=== PATIENT | female | born 1940 | race Caucasian/White ===

== ENCOUNTER 2018-01-22 05:20 | Inpatient (IN) | payer MEDICARE, OTHER ==
[~2018-01-22] VITALS: Ht 167.6 cm; Wt 88.7 kg
[2018-01-22] MEDS ORDERED: LACTATED RINGERS 1,000 ML IV SCH (06:11)
[2018-01-22] MEDS ORDERED: CALC1TAB41 PO (06:22)
[2018-01-22] MEDS ORDERED: FURO20TA3 PO (06:22)
[2018-01-22] MEDS ORDERED: TRAM50TA2 PO (06:22)
[2018-01-22] MEDS ORDERED: METH2.5T PO (06:22)
[2018-01-22] MEDS ORDERED: AMIT10TA PO (06:22)
[2018-01-22] MEDS ORDERED: IRON1TAB62 PO (06:22)
[2018-01-22] MEDS ORDERED: GABA300C10 PO (06:22)
[2018-01-22] MEDS ORDERED: SPIR100T2 PO (06:22)
[2018-01-22] MEDS ORDERED: CYAN100028 PO (06:22)
[2018-01-22] MEDS ORDERED: METF500T27 PO (06:22)
[2018-01-22] MEDS ORDERED: POTA10TA31 PO (06:22)
[2018-01-22] MEDS ORDERED: LEVO125T5 PO (06:22)
[2018-01-22] MEDS ORDERED: FOLI-17 PO (06:22)
[2018-01-22] MEDS ORDERED: CHOL200024 PO (06:22)
[2018-01-22] MEDS ORDERED: WARF1TAB74 PO (06:22)
[2018-01-22] MEDS ORDERED: SIMV10TA3 PO (06:22)
[2018-01-22] MEDS ORDERED: DOXY100T PO (06:22)
[2018-01-22] MEDS ORDERED: ONDA4TAB7 PO (06:22)
[2018-01-22] MEDS ORDERED: ASCO10004 PO (06:22)
[2018-01-22] MEDS ORDERED: AMOX-291 PO (06:22)
[2018-01-22] MEDS ORDERED: TRANEXAMIC ACID 100 MG/ML, 10ML ONE (06:36)
[2018-01-22] MEDS ORDERED: KETOROLAC 60 MG/2 ML ONE (06:36)
[2018-01-22] MEDS ORDERED: ROPIvacaine/PF 0.2%, 20 ML ONE (06:37)
[2018-01-22] MEDS ORDERED: TOBRAMYCIN SULFATE 1.2 GM IMP ONE (06:37)
[2018-01-22] MEDS ORDERED: VANCOMYCIN 1,000 MG ONE (06:38)
[2018-01-22] MEDS ORDERED: EPINEPHRINE 1 MG/ML, 1ML ONE (06:38)
[2018-01-22] MEDS ORDERED: SODIUM CHLORIDE 0.9% 0 ML ONE (06:38)
[2018-01-22 07:08] VITALS: BP 128/73
[2018-01-22] MEDS ORDERED: FENTANYL PF 250 MCG/5ML ONE (07:08)
[2018-01-22] MEDS ORDERED: INFL100V IV (07:25)
[2018-01-22] MEDS ORDERED: OxyconTIN ER 10 MG TAB.ER PO ONE (07:30)
[2018-01-22] MEDS ORDERED: GABAPENTIN 300 MG CAPSULE PO ONE (07:30)
[2018-01-22] MEDS ORDERED: ACETAMINOPHEN 500 MG TABLET PO ONE (07:30)
[2018-01-22 07:31] LABS: INTERNATIONAL NORMALIZED RATIO 1.57 (0.93-1.1)
[2018-01-22] MEDS ORDERED: ONDANSETRON 2MG/ML, 2ML ONE (07:42)
[2018-01-22] MEDS ORDERED: PROPOFOL 10 MG/ML, 20ML ONE (07:42)
[2018-01-22] MEDS ORDERED: DEXAMETHASONE 4 MG/ML, 1ML ONE (07:42)
[2018-01-22] MEDS ORDERED: OXYcodone 5 MG/5 ML ORAL.SOL UDC PO PRN (08:30)
[2018-01-22] MEDS ORDERED: LABETALOL 5MG/ML, 20ML IV PRN (08:30)
[2018-01-22] MEDS ORDERED: hydrALAzine 20 MG/ML, 1ML IV PRN (08:30)
[2018-01-22] MEDS ORDERED: HALOPERIDOL 5 MG/ML IV PRN (08:30)
[2018-01-22] MEDS ORDERED: PROMETHAZINE 25 MG/ML, 1ML IV PRN (08:30)
[2018-01-22] MEDS ORDERED: LORazepam 2 MG/ML, 1ML IVPush PRN (08:30)
[2018-01-22] MEDS ORDERED: ALBUTEROL SULFATE 2.5 MG/3 ML NPPB PRN (08:30)
[2018-01-22] MEDS ORDERED: FENTANYL PF 100 MCG/2ML ONE (10:09)
[2018-01-22] MEDS: FENTANYL PF 100 MCG/2ML IV PRN ×2 (10:11→10:32)
[2018-01-22] MEDS ORDERED: DEXTROSE 4 GM TAB.CHEW PO PRN (10:30)
[2018-01-22] MEDS ORDERED: PROMETHAZINE 12.5 MG SUPP PR PRN (10:30)
[2018-01-22] MEDS ORDERED: HYDROmorphone 1 MG/ML, 1ML IV PRN (10:30)
[2018-01-22] MEDS: ACETAMINOPHEN 650 MG/20.3 ML UDC PO SCH ×2 (10:30→18:23)
[2018-01-22] MEDS ORDERED: MAGNESIUM HYDROXIDE 8%, 30ML UDC PO PRN (10:30)
[2018-01-22] MEDS ORDERED: DIAZEPAM 5 MG TABLET PO PRN (10:30)
[2018-01-22] MEDS ORDERED: DIPHENHYDRAMINE 50 MG CAPSULE PO PRN (10:30)
[2018-01-22] MEDS ORDERED: BISACODYL 10 MG SUPP PR PRN (10:30)
[2018-01-22] MEDS ORDERED: LORazepam 1MG TABLET PO PRN (10:30)
[2018-01-22] MEDS ORDERED: DEXTROSE 50%, 50ML SYRINGE IVPush PRN (10:30)
[2018-01-22] MEDS ORDERED: SENNA/DOCUSATE TABLET PO PRN (10:30)
[2018-01-22] MEDS ORDERED: ONDANSETRON 4 MG TABLET PO PRN (10:30)
[2018-01-22] MEDS ORDERED: ALUMINUM/MAG/SIMETHICONE 30 ML UDC PO PRN (10:30)
[2018-01-22] MEDS ORDERED: PROMETHAZINE 25 MG/ML, 1ML IM PRN (10:30)
[2018-01-22] MEDS ORDERED: ZOLPIDEM 5MG TABLET PO PRN (10:30)
[2018-01-22] MEDS ORDERED: GLUCAGON 1 MG IM PRN (10:30)
[2018-01-22] MEDS ORDERED: HYDROmorphone 2 MG/ML, 1ML ONE (10:36)
[2018-01-22] MEDS: HYDROmorphone 1 MG/ML, 1ML IV PRN ×3 (10:37→10:59)
[2018-01-22] MEDS ORDERED: OXYcodone 5 MG/5 ML ORAL.SOL UDC ONE (10:43)
[2018-01-22] MEDS: ONDANSETRON 2MG/ML, 2ML IV PRN (12:19)
[2018-01-22] MEDS: SODIUM CHLORIDE 0.9% 1,000 ML IV SCH ×2 (12:22→22:30)
[2018-01-22] MEDS: INSULIN REGULAR 100 UNITS/ML, 3ML VIAL SQ-INSULIN SCH ×3 (13:14→22:30)
[2018-01-22] MEDS: TAMSULOSIN 0.4 MG CAP.ER.24H PO SCH (13:14)
[2018-01-22 15:00] VITALS: BP 87/59
[2018-01-22] MEDS: CEFAZOLIN PMX 1GM/50ML 50 ML IVPB SCH ×2 (15:36→23:44)
[2018-01-22] MEDS: OXYcodone IR 5MG TABLET PO PRN (15:51)
[2018-01-22 19:20] VITALS: BP 85/50
[2018-01-22] MEDS: DOXYCYCLINE 100MG TABLET PO SCH (21:04)
[2018-01-22] MEDS: DOCUSATE 100 MG CAPSULE PO SCH (21:04)
[2018-01-22] MEDS: SIMVASTATIN 10 MG TABLET PO SCH (21:05)
[2018-01-22] MEDS: SODIUM CHLORIDE FLUSH 10ML SYR IVF SCH (21:09)
[2018-01-23 01:08] VITALS: BP 90/53
[2018-01-23] MEDS: ACETAMINOPHEN 650 MG/20.3 ML UDC PO SCH ×3 (02:45→20:37)
[2018-01-23] MEDS: SODIUM CHLORIDE 0.9% 1,000 ML IV SCH (02:49)
[2018-01-23 05:42] LABS: ALBUMIN 2.2 g/dL (3.4-5.0); ANION GAP 4 mmol/L (5-15); CALCIUM 7.5 mg/dL (8.5-10.1); CHLORIDE 104 mmol/L (98-107); CREATININE 1.48 mg/dL (0.55-1.02)
[2018-01-23] MEDS ORDERED: SODIUM CHLORIDE 0.9%, 500ML IVBOLUS ONE (06:30)
[2018-01-23] MEDS: LEVOTHYROXINE 125 MCG TABLET PO SCH (06:32)
[2018-01-23 06:45] VITALS: BP_SYST 88; BP_SYST 93; BP_DIAS 41; BP_DIAS 45
[2018-01-23] MEDS: INSULIN REGULAR 100 UNITS/ML, 3ML VIAL SQ-INSULIN SCH ×2 (07:00→11:00)
[2018-01-23] MEDS: SPIRONOLACTONE 100 MG TABLET PO SCH (09:00)
[2018-01-23] MEDS: FUROSEMIDE 20 MG TABLET PO SCH (09:00)
[2018-01-23] MEDS ORDERED: POTASSIUM CHLORIDE 10 MEQ TABLET.ER PO SCH (09:00)
[2018-01-23] MEDS ORDERED: SPIRONOLACTONE 25 MG TABLET ONE (09:04)
[2018-01-23] MEDS: CEFAZOLIN PMX 1GM/50ML 50 ML IVPB SCH ×3 (09:13→23:09)
[2018-01-23] MEDS: FOLIC ACID 1 MG TABLET PO SCH (09:14)
[2018-01-23] MEDS: DOCUSATE 100 MG CAPSULE PO SCH ×2 (09:14→20:38)
[2018-01-23] MEDS: DOXYCYCLINE 100MG TABLET PO SCH (09:15)
[2018-01-23] MEDS: GABAPENTIN 300 MG CAPSULE PO SCH (09:15)
[2018-01-23] MEDS: TAMSULOSIN 0.4 MG CAP.ER.24H PO SCH (11:01)
[2018-01-23] MEDS: SODIUM CHLORIDE FLUSH 10ML SYR IVF SCH ×2 (11:01→20:38)
[2018-01-23] MEDS: CYANOCOBALAMIN 1,000 MCG TABLET PO SCH (11:02)
[2018-01-23] MEDS: RIVAROXABAN 10 MG TABLET PO SCH (11:02)
[2018-01-23] MEDS: INSULIN LISPRO 100 UNITS/ML, PEN SQ-INSULIN SCH ×3 (12:00→20:36)
[2018-01-23 12:16] LABS: BASOPHILS # (AUTO) 0.01 x10^3/uL (0-0.1); BASOPHILS % (AUTO) 0 % (0-1); EOSINOPHILS # (AUTO) 0.06 x10^3/uL (0-0.4); EOSINOPHILS % (AUTO) 1 % (1-7); LYMPHOCYTES # (AUTO) 1.25 x10^3/uL (1-3.4); LYMPHOCYTES % (AUTO) 11 % (22-44); MD NO; MEAN CORPUSCULAR HEMOGLOBIN 31.3 pg (27.0-34.8); MEAN CORPUSCULAR HGB CONC 32.9 g/dL (32.4-35.8); MEAN CORPUSCULAR VOLUME 95.1 fL (80-100); MEAN PLATELET VOLUME 7.6 fL (7.4-10.4); MONOCYTES # (AUTO) 0.61 x10^3/uL (0.2-0.8); MONOCYTES % (AUTO) 6 % (2-9); NEUTROPHILS # (AUTO) 9.03 x10^3/uL (1.8-6.8); NEUTROPHILS % (AUTO) 82 % (42-75); PLATELET COUNT 257 x10^3/uL (130-400); RED BLOOD COUNT 2.41 x10^6/uL (3.82-5.3); RED CELL DISTRIBUTION WIDTH 16.2 % (9.6-15.2)
[2018-01-23 12:30] LABS: CHLORIDE 102 mmol/L (98-107)
[2018-01-23] MEDS ORDERED: SODIUM POLYSTYRENE SULFONATE ORAL SUSP PO ONE ×2 (12:30→13:00)
[2018-01-23 12:36] LABS: ANION GAP 6 mmol/L (5-15); CALCIUM 7.7 mg/dL (8.5-10.1); CREATININE 1.48 mg/dL (0.55-1.02)
[2018-01-23 12:46] LABS: HEMOGLOBIN A1C 5.7 % (4.2-6.3)
[2018-01-23 13:00] LABS: INTERNATIONAL NORMALIZED RATIO 2.07 (0.93-1.1)
[2018-01-23 13:14] LABS: THYROID STIMULATING HORMONE 0.324 mIU/L (0.358-3.740)
[2018-01-23] MEDS: OXYcodone IR 5MG TABLET PO PRN ×3 (13:26→21:54)
[2018-01-23 13:52] VITALS: BP 92/45
[2018-01-23] MEDS ORDERED: LIDOCAINE-MPF 1%, 2ML ONE (13:59)
[2018-01-23] MEDS: KETOROLAC 30 MG/1 ML IV SCH ×2 (15:06→23:09)
[2018-01-23] MEDS: DAPTOMYCIN 600 MG in SODIUM CHLORIDE 0.9% 100 ML IV SCH (16:23)
[2018-01-23] MEDS ORDERED: WARF2TAB99 PO (17:44)
[2018-01-23 19:42] VITALS: BP 100/52
[2018-01-23] MEDS: SIMVASTATIN 10 MG TABLET PO SCH (20:38)
[2018-01-24 01:45] VITALS: BP 123/56
[2018-01-24] MEDS: OXYcodone IR 5MG TABLET PO PRN ×3 (02:37→11:01)
[2018-01-24] MEDS: LEVOTHYROXINE 125 MCG TABLET PO SCH (04:50)
[2018-01-24] MEDS: ACETAMINOPHEN 650 MG/20.3 ML UDC PO SCH ×3 (04:50→20:17)
[2018-01-24 05:47] LABS: INTERNATIONAL NORMALIZED RATIO 1.77 (0.93-1.1)
[2018-01-24] MEDS: KETOROLAC 30 MG/1 ML IV SCH (06:26)
[2018-01-24] MEDS: CEFAZOLIN PMX 1GM/50ML 50 ML IVPB SCH ×3 (06:28→23:12)
[2018-01-24] MEDS: INSULIN LISPRO 100 UNITS/ML, PEN SQ-INSULIN SCH ×4 (06:35→20:15)
[2018-01-24 07:05] VITALS: BP 91/42
[2018-01-24 08:28] LABS: MEAN CORPUSCULAR HEMOGLOBIN 31.5 pg (27.0-34.8); MEAN CORPUSCULAR HGB CONC 33.1 g/dL (32.4-35.8); MEAN CORPUSCULAR VOLUME 95.1 fL (80-100); MEAN PLATELET VOLUME 7.4 fL (7.4-10.4); PLATELET COUNT 249 x10^3/uL (130-400); RED BLOOD COUNT 2.38 x10^6/uL (3.82-5.3)
[2018-01-24 08:32] LABS: ALBUMIN 2.2 g/dL (3.4-5.0); ANION GAP 6 mmol/L (5-15); CALCIUM 7.6 mg/dL (8.5-10.1); CHLORIDE 106 mmol/L (98-107)
[2018-01-24 08:36] LABS: % IRON SATURATION 14 % (20-55); ALANINE AMINOTRANSFERASE 8 U/L (12-78); ALKALINE PHOSPHATASE 76 U/L (45-117); BILIRUBIN,TOTAL 0.3 mg/dL (0.2-1.0); CREATININE 1.87 mg/dL (0.55-1.02); IRON LEVEL 23 mcg/dL (50-170); TOTAL IRON BINDING CAPACITY 167 mcg/dL (250-450); TOTAL PROTEIN 5.1 g/dL (6.4-8.2)
[2018-01-24] MEDS: FUROSEMIDE 20 MG TABLET PO SCH (09:00)
[2018-01-24] MEDS: SPIRONOLACTONE 100 MG TABLET PO SCH (09:00)
[2018-01-24 09:02] LABS: BASOPHILS # (AUTO) 0.03 x10^3/uL (0-0.1); BASOPHILS % (AUTO) 0 % (0-1); EOSINOPHILS # (AUTO) 0.14 x10^3/uL (0-0.4); EOSINOPHILS % (AUTO) 1 % (1-7); LYMPHOCYTES # (AUTO) 0.62 x10^3/uL (1-3.4); LYMPHOCYTES % (AUTO) 4 % (22-44); MD SCAN; MONOCYTES # (AUTO) 0.69 x10^3/uL (0.2-0.8); MONOCYTES % (AUTO) 5 % (2-9); NEUTROPHILS # (AUTO) 13.36 x10^3/uL (1.8-6.8); NEUTROPHILS % (AUTO) 90 % (42-75)
[2018-01-24] MEDS: SODIUM CHLORIDE FLUSH 10ML SYR IVF SCH ×2 (09:33→20:17)
[2018-01-24] MEDS: TAMSULOSIN 0.4 MG CAP.ER.24H PO SCH (09:35)
[2018-01-24] MEDS: DOCUSATE 100 MG CAPSULE PO SCH ×2 (09:35→20:17)
[2018-01-24] MEDS: FOLIC ACID 1 MG TABLET PO SCH (09:35)
[2018-01-24] MEDS: CYANOCOBALAMIN 1,000 MCG TABLET PO SCH (09:36)
[2018-01-24] MEDS: RIVAROXABAN 10 MG TABLET PO SCH (09:36)
[2018-01-24] MEDS: GABAPENTIN 300 MG CAPSULE PO SCH (09:36)
[2018-01-24] MEDS: DAPTOMYCIN 600 MG in SODIUM CHLORIDE 0.9% 100 ML IV SCH (12:49)
[2018-01-24 15:16] VITALS: BP 103/43
[2018-01-24] MEDS: ONDANSETRON 2MG/ML, 2ML IV PRN (17:06)
[2018-01-24 19:23] VITALS: BP 129/62
[2018-01-24] MEDS: SIMVASTATIN 10 MG TABLET PO SCH (20:17)
[2018-01-25 01:03] VITALS: BP 94/45
[2018-01-25] MEDS: LEVOTHYROXINE 125 MCG TABLET PO SCH (05:06)
[2018-01-25] MEDS: ACETAMINOPHEN 650 MG/20.3 ML UDC PO SCH ×2 (05:06→15:14)
[2018-01-25 05:29] LABS: INTERNATIONAL NORMALIZED RATIO 2.14 (0.93-1.1); PROTHROMBIN TIME 21.7 Seconds (9.6-11.5)
[2018-01-25 05:31] LABS: MEAN CORPUSCULAR HEMOGLOBIN 31.6 pg (27.0-34.8); MEAN CORPUSCULAR HGB CONC 33.4 g/dL (32.4-35.8); MEAN CORPUSCULAR VOLUME 94.7 fL (80-100); MEAN PLATELET VOLUME 7.4 fL (7.4-10.4); PLATELET COUNT 235 x10^3/uL (130-400); RED BLOOD COUNT 2.15 x10^6/uL (3.82-5.3); RED CELL DISTRIBUTION WIDTH 17.7 % (9.6-15.2)
[2018-01-25 05:44] LABS: ALBUMIN 1.8 g/dL (3.4-5.0); ANION GAP 6 mmol/L (5-15); CALCIUM 7.2 mg/dL (8.5-10.1); CHLORIDE 107 mmol/L (98-107)
[2018-01-25 05:48] LABS: ALKALINE PHOSPHATASE 62 U/L (45-117); BILIRUBIN,TOTAL 0.4 mg/dL (0.2-1.0); CREATININE 1.54 mg/dL (0.55-1.02); TOTAL PROTEIN 4.6 g/dL (6.4-8.2)
[2018-01-25 05:49] LABS: ALANINE AMINOTRANSFERASE < 6 U/L (12-78)
[2018-01-25 05:57] LABS: MD YES
[2018-01-25 05:59] LABS: BAND#(MANUAL) 2.47 x10^3/uL; BANDS%(MANUAL) 13 % (0-7); LYMPH#(MANUAL) 1.33 x10^3/uL (1-3.4); LYMPHS% (MANUAL) 7 % (22-44); MONOS#(MANUAL) 0.76 x10^3/uL (0.3-2.7); MONOS% (MANUAL) 4 % (2-9); SEG#(MANUAL) 14.44 x10^3/uL (1.8-6.8); SEGS% (MANUAL) 76 % (42-75)
[2018-01-25 06:00] LABS: <PLATELET ESTIMATE> ADEQUATE; ANISOCYTOSIS 1+; POLYCHROMASIA 1+
[2018-01-25 06:02] LABS: BASOPHILLIC STIPPLING 1+
[2018-01-25 06:03] LABS: <PLT MORPHOLOGY> NORMAL PLT MORPH
[2018-01-25 07:31] VITALS: BP 86/38
[2018-01-25] MEDS: CEFAZOLIN PMX 1GM/50ML 50 ML IVPB SCH ×3 (07:51→23:06)
[2018-01-25 07:56] VITALS: BP 103/43
[2018-01-25] MEDS: INSULIN LISPRO 100 UNITS/ML, PEN SQ-INSULIN SCH ×4 (08:12→21:00)
[2018-01-25] MEDS: CYANOCOBALAMIN 1,000 MCG TABLET PO SCH (09:00)
[2018-01-25] MEDS: SODIUM CHLORIDE FLUSH 10ML SYR IVF SCH ×2 (09:55→21:12)
[2018-01-25] MEDS: GABAPENTIN 300 MG CAPSULE PO SCH (09:56)
[2018-01-25] MEDS: DOCUSATE 100 MG CAPSULE PO SCH ×2 (09:56→21:12)
[2018-01-25] MEDS: FOLIC ACID 1 MG TABLET PO SCH (09:56)
[2018-01-25] MEDS: RIVAROXABAN 10 MG TABLET PO SCH (09:56)
[2018-01-25] MEDS: TAMSULOSIN 0.4 MG CAP.ER.24H PO SCH (09:56)
[2018-01-25] MEDS ORDERED: SPIRONOLACTONE 25 MG TABLET ONE (10:02)
[2018-01-25] MEDS ORDERED: FUROSEMIDE 20 MG TABLET ONE (10:02)
[2018-01-25] MEDS: OMEPRAZOLE 20 MG CAPSULE.DR PO SCH ×2 (10:10→21:12)
[2018-01-25] MEDS: OXYcodone IR 5MG TABLET PO PRN ×2 (10:11→18:06)
[2018-01-25] MEDS: SPIRONOLACTONE 100 MG TABLET PO SCH (10:13)
[2018-01-25] MEDS: FUROSEMIDE 20 MG TABLET PO SCH (10:14)
[2018-01-25 10:17] VITALS: BP 110/47
[2018-01-25] MEDS: DAPTOMYCIN 600 MG in SODIUM CHLORIDE 0.9% 100 ML IV SCH (12:56)
[2018-01-25 14:59] VITALS: BP 85/41
[2018-01-25] MEDS: [UNRECOGNIZED DRUG - REMARK] MC SCH (18:00)
[2018-01-25 18:17] LABS: MEAN CORPUSCULAR HEMOGLOBIN 31.7 pg (27.0-34.8); MEAN CORPUSCULAR VOLUME 95.9 fL (80-100); MEAN PLATELET VOLUME 7.4 fL (7.4-10.4); PLATELET COUNT 288 x10^3/uL (130-400); RED BLOOD COUNT 2.09 x10^6/uL (3.82-5.3); RED CELL DISTRIBUTION WIDTH 17.9 % (9.6-15.2)
[2018-01-25 18:22] LABS: HEMOGRAM NOTE RECHECKED
[2018-01-25 18:27] LABS: MD YES
[2018-01-25] MEDS: FERROUS SULFATE 325 MG TABLET PO SCH (18:29)
[2018-01-25 18:31] LABS: ANISOCYTOSIS 1+; BAND#(MANUAL) 1.36 x10^3/uL; BANDS%(MANUAL) 6 % (0-7); BASOS#(MANUAL) 0.23 x10^3/uL (0-0.1); BASOS% (MANUAL) 1 % (0-1); EOS#(MANUAL) 0.45 x10^3/uL (0.0-0.4); EOS% (MANUAL) 2 % (1-7); LYMPH#(MANUAL) 1.58 x10^3/uL (1-3.4); LYMPHS% (MANUAL) 7 % (22-44); MONOS#(MANUAL) 1.58 x10^3/uL (0.3-2.7); MONOS% (MANUAL) 7 % (2-9); SEGS% (MANUAL) 77 % (42-75)
[2018-01-25 18:32] LABS: POLYCHROMASIA 1+
[2018-01-25 18:34] LABS: <PLATELET ESTIMATE> ADEQUATE; <PLT MORPHOLOGY> NORMAL PLT MORPH
[2018-01-25 20:08] VITALS: BP 90/43
[2018-01-25] MEDS: SIMVASTATIN 10 MG TABLET PO SCH (21:12)
[2018-01-25] MEDS: ACETAMINOPHEN 500 MG TABLET PO SCH (23:06)
[2018-01-26] MEDS: [UNRECOGNIZED DRUG - REMARK] MC SCH ×2 (00:32→10:00)
[2018-01-26 01:11] VITALS: BP 98/43
[2018-01-26] MEDS: OXYcodone IR 5MG TABLET PO PRN ×2 (05:31→11:41)
[2018-01-26] MEDS: LEVOTHYROXINE 125 MCG TABLET PO SCH (05:31)
[2018-01-26 06:19] LABS: ANION GAP 7 mmol/L (5-15); CALCIUM 8.2 mg/dL (8.5-10.1); CHLORIDE 108 mmol/L (98-107); CREATININE 1.94 mg/dL (0.55-1.02); MEAN CORPUSCULAR HEMOGLOBIN 31.5 pg (27.0-34.8); MEAN CORPUSCULAR HGB CONC 32.4 g/dL (32.4-35.8); MEAN CORPUSCULAR VOLUME 97.1 fL (80-100); MEAN PLATELET VOLUME 7.6 fL (7.4-10.4); PLATELET COUNT 346 x10^3/uL (130-400); RED BLOOD COUNT 2.27 x10^6/uL (3.82-5.3); RED CELL DISTRIBUTION WIDTH 18.2 % (9.6-15.2)
[2018-01-26] MEDS: INSULIN LISPRO 100 UNITS/ML, PEN SQ-INSULIN SCH ×4 (06:28→21:00)
[2018-01-26 06:31] LABS: INTERNATIONAL NORMALIZED RATIO 1.56 (0.93-1.1); PROTHROMBIN TIME 15.9 Seconds (9.6-11.5)
[2018-01-26 06:44] LABS: MD YES
[2018-01-26 06:47] LABS: BAND#(MANUAL) 0.27 x10^3/uL; BANDS%(MANUAL) 1 % (0-7); BASOS#(MANUAL) 0.27 x10^3/uL (0-0.1); BASOS% (MANUAL) 1 % (0-1); EOS#(MANUAL) 0.27 x10^3/uL (0.0-0.4); EOS% (MANUAL) 1 % (1-7); LYMPH#(MANUAL) 3.45 x10^3/uL (1-3.4); LYMPHS% (MANUAL) 13 % (22-44); MONOS#(MANUAL) 1.59 x10^3/uL (0.3-2.7); MONOS% (MANUAL) 6 % (2-9); SEG#(MANUAL) 20.67 x10^3/uL (1.8-6.8); SEGS% (MANUAL) 78 % (42-75)
[2018-01-26 06:48] LABS: <PLATELET ESTIMATE> ADEQUATE; <PLT MORPHOLOGY> NORMAL PLT MORPH; ANISOCYTOSIS 1+; POLYCHROMASIA 1+
[2018-01-26] MEDS ORDERED: SPIRONOLACTONE 25 MG TABLET ONE (07:38)
[2018-01-26] MEDS: CEFAZOLIN PMX 1GM/50ML 50 ML IVPB SCH ×2 (07:48→16:23)
[2018-01-26] MEDS: FERROUS SULFATE 325 MG TABLET PO SCH ×3 (07:49→16:34)
[2018-01-26] MEDS: ACETAMINOPHEN 500 MG TABLET PO SCH ×3 (07:49→23:41)
[2018-01-26] MEDS: SODIUM CHLORIDE FLUSH 10ML SYR IVF SCH ×2 (07:50→21:00)
[2018-01-26] MEDS: SPIRONOLACTONE 100 MG TABLET PO SCH (07:51)
[2018-01-26] MEDS: DOCUSATE 100 MG CAPSULE PO SCH ×2 (07:52→21:05)
[2018-01-26] MEDS: TAMSULOSIN 0.4 MG CAP.ER.24H PO SCH (07:53)
[2018-01-26] MEDS: FOLIC ACID 1 MG TABLET PO SCH (07:53)
[2018-01-26] MEDS: FUROSEMIDE 20 MG TABLET PO SCH (07:54)
[2018-01-26] MEDS: OMEPRAZOLE 20 MG CAPSULE.DR PO SCH ×2 (07:55→21:05)
[2018-01-26] MEDS: GABAPENTIN 300 MG CAPSULE PO SCH (07:55)
[2018-01-26] MEDS: CYANOCOBALAMIN 1,000 MCG TABLET PO SCH (07:56)
[2018-01-26] MEDS: RIVAROXABAN 10 MG TABLET PO SCH (07:57)
[2018-01-26 08:00] VITALS: BP 101/37
[2018-01-26] MEDS: DAPTOMYCIN 600 MG in SODIUM CHLORIDE 0.9% 100 ML IV SCH (12:25)
[2018-01-26 14:30] VITALS: BP 99/48
[2018-01-26] MEDS: SIMVASTATIN 10 MG TABLET PO SCH (21:05)
[2018-01-26 21:10] VITALS: BP 118/84
[2018-01-27] MEDS: CEFAZOLIN PMX 1GM/50ML 50 ML IVPB SCH ×3 (00:23→16:30)
[2018-01-27 00:39] VITALS: BP 119/75
[2018-01-27 02:11] VITALS: BP 107/55
[2018-01-27] MEDS: OXYcodone IR 5MG TABLET PO PRN (04:22)
[2018-01-27 05:08] LABS: MEAN CORPUSCULAR HEMOGLOBIN 31.3 pg (27.0-34.8); MEAN CORPUSCULAR HGB CONC 32.6 g/dL (32.4-35.8); MEAN CORPUSCULAR VOLUME 95.9 fL (80-100); MEAN PLATELET VOLUME 7.1 fL (7.4-10.4); PLATELET COUNT 403 x10^3/uL (130-400); RED BLOOD COUNT 2.17 x10^6/uL (3.82-5.3); RED CELL DISTRIBUTION WIDTH 18.7 % (9.6-15.2)
[2018-01-27 05:33] LABS: INTERNATIONAL NORMALIZED RATIO 1.34 (0.93-1.1); PROTHROMBIN TIME 13.7 Seconds (9.6-11.5)
[2018-01-27 05:59] LABS: MD YES
[2018-01-27 06:00] LABS: EOS#(MANUAL) 0.16 x10^3/uL (0.0-0.4); EOS% (MANUAL) 1 % (1-7); LYMPH#(MANUAL) 2.74 x10^3/uL (1-3.4); LYMPHS% (MANUAL) 17 % (22-44); MONOS#(MANUAL) 1.29 x10^3/uL (0.3-2.7); MONOS% (MANUAL) 8 % (2-9); NRBC % (MANUAL) 1 % (0-1); SEG#(MANUAL) 11.91 x10^3/uL (1.8-6.8); SEGS% (MANUAL) 74 % (42-75)
[2018-01-27 06:01] LABS: ANISOCYTOSIS 1+; POLYCHROMASIA 1+
[2018-01-27 06:02] LABS: <PLATELET ESTIMATE> ADEQUATE; <PLT MORPHOLOGY> NORMAL PLT MORPH
[2018-01-27] MEDS: INSULIN LISPRO 100 UNITS/ML, PEN SQ-INSULIN SCH ×4 (06:07→22:24)
[2018-01-27] MEDS: LEVOTHYROXINE 125 MCG TABLET PO SCH (06:07)
[2018-01-27] MEDS: ACETAMINOPHEN 500 MG TABLET PO SCH ×3 (07:57→23:14)
[2018-01-27] MEDS: FERROUS SULFATE 325 MG TABLET PO SCH ×3 (08:00→16:49)
[2018-01-27 08:25] LABS: ANION GAP 5 mmol/L (5-15); CALCIUM 8.2 mg/dL (8.5-10.1); CHLORIDE 111 mmol/L (98-107); CREATININE 1.62 mg/dL (0.55-1.02)
[2018-01-27] MEDS: SODIUM CHLORIDE FLUSH 10ML SYR IVF SCH ×2 (08:25→22:16)
[2018-01-27] MEDS: RIVAROXABAN 10 MG TABLET PO SCH (08:25)
[2018-01-27] MEDS: GABAPENTIN 300 MG CAPSULE PO SCH (08:26)
[2018-01-27] MEDS: OMEPRAZOLE 20 MG CAPSULE.DR PO SCH ×2 (08:26→22:16)
[2018-01-27] MEDS: TAMSULOSIN 0.4 MG CAP.ER.24H PO SCH (08:26)
[2018-01-27] MEDS: FOLIC ACID 1 MG TABLET PO SCH (08:27)
[2018-01-27] MEDS: DOCUSATE 100 MG CAPSULE PO SCH ×2 (08:27→22:16)
[2018-01-27] MEDS: FUROSEMIDE 20 MG TABLET PO SCH (08:40)
[2018-01-27] MEDS: CYANOCOBALAMIN 1,000 MCG TABLET PO SCH (09:00)
[2018-01-27] MEDS ORDERED: SODIUM POLYSTYRENE SULFONATE ORAL SUSP PR ONE (12:30)
[2018-01-27 13:15] LABS: ANION GAP 4 mmol/L (5-15); CALCIUM 8.2 mg/dL (8.5-10.1); CHLORIDE 108 mmol/L (98-107)
[2018-01-27] MEDS: DAPTOMYCIN 600 MG in SODIUM CHLORIDE 0.9% 100 ML IV SCH (13:17)
[2018-01-27 14:47] VITALS: BP 112/51
[2018-01-27 19:12] VITALS: BP 112/49
[2018-01-27] MEDS: SIMVASTATIN 10 MG TABLET PO SCH (22:16)
[2018-01-28] MEDS: CEFAZOLIN PMX 1GM/50ML 50 ML IVPB SCH ×3 (00:58→16:32)
[2018-01-28 01:21] VITALS: BP 119/52
[2018-01-28 05:16] LABS: INTERNATIONAL NORMALIZED RATIO 1.24 (0.93-1.1); PROTHROMBIN TIME 12.7 Seconds (9.6-11.5)
[2018-01-28 06:00] LABS: MEAN CORPUSCULAR HEMOGLOBIN 31.7 pg (27.0-34.8); MEAN CORPUSCULAR HGB CONC 33.1 g/dL (32.4-35.8); MEAN CORPUSCULAR VOLUME 95.6 fL (80-100); MEAN PLATELET VOLUME 6.6 fL (7.4-10.4); PLATELET COUNT 384 x10^3/uL (130-400); RED BLOOD COUNT 1.99 x10^6/uL (3.82-5.3); RED CELL DISTRIBUTION WIDTH 17.8 % (9.6-15.2)
[2018-01-28 06:34] LABS: BASOPHILS # (AUTO) 0.02 x10^3/uL (0-0.1); BASOPHILS % (AUTO) 0 % (0-1); EOSINOPHILS # (AUTO) 0.21 x10^3/uL (0-0.4); EOSINOPHILS % (AUTO) 2 % (1-7); LYMPHOCYTES # (AUTO) 1.76 x10^3/uL (1-3.4); LYMPHOCYTES % (AUTO) 18 % (22-44); MD SCAN; MONOCYTES % (AUTO) 7 % (2-9); NEUTROPHILS # (AUTO) 7.06 x10^3/uL (1.8-6.8); NEUTROPHILS % (AUTO) 72 % (42-75)
[2018-01-28] MEDS: LEVOTHYROXINE 125 MCG TABLET PO SCH (06:43)
[2018-01-28] MEDS: ACETAMINOPHEN 500 MG TABLET PO SCH ×3 (06:43→22:55)
[2018-01-28] MEDS: INSULIN LISPRO 100 UNITS/ML, PEN SQ-INSULIN SCH ×4 (06:43→22:39)
[2018-01-28 07:14] VITALS: BP 109/54
[2018-01-28] MEDS: FERROUS SULFATE 325 MG TABLET PO SCH ×3 (08:26→17:31)
[2018-01-28] MEDS: OMEPRAZOLE 20 MG CAPSULE.DR PO SCH ×2 (08:26→22:35)
[2018-01-28] MEDS: GABAPENTIN 300 MG CAPSULE PO SCH (08:26)
[2018-01-28] MEDS: TAMSULOSIN 0.4 MG CAP.ER.24H PO SCH (08:26)
[2018-01-28] MEDS: DOCUSATE 100 MG CAPSULE PO SCH ×2 (08:26→22:35)
[2018-01-28] MEDS: FUROSEMIDE 20 MG TABLET PO SCH (08:26)
[2018-01-28] MEDS: RIVAROXABAN 10 MG TABLET PO SCH (08:27)
[2018-01-28] MEDS: FOLIC ACID 1 MG TABLET PO SCH (08:27)
[2018-01-28] MEDS: SODIUM CHLORIDE FLUSH 10ML SYR IVF SCH ×2 (09:00→21:00)
[2018-01-28] MEDS: CYANOCOBALAMIN 1,000 MCG TABLET PO SCH (09:00)
[2018-01-28 13:01] VITALS: BP 138/74
[2018-01-28] MEDS: DAPTOMYCIN 600 MG in SODIUM CHLORIDE 0.9% 100 ML IV SCH (13:52)
[2018-01-28 17:40] LABS: ANION GAP 6 mmol/L (5-15); CALCIUM 8.3 mg/dL (8.5-10.1); CHLORIDE 107 mmol/L (98-107); CREATININE 1.53 mg/dL (0.55-1.02)
[2018-01-28] MEDS ORDERED: SODIUM POLYSTYRENE SULFONATE ORAL SUSP PO ONE ×2 (18:30→20:00)
[2018-01-28 19:16] VITALS: BP 126/64
[2018-01-28] MEDS: SIMVASTATIN 10 MG TABLET PO SCH (22:35)
[2018-01-29] MEDS: CEFAZOLIN PMX 1GM/50ML 50 ML IVPB SCH ×3 (00:44→18:14)
[2018-01-29 01:06] VITALS: BP 129/71
[2018-01-29] MEDS: OXYcodone IR 5MG TABLET PO PRN ×2 (01:23→13:17)
[2018-01-29] MEDS: LEVOTHYROXINE 125 MCG TABLET PO SCH (05:53)
[2018-01-29 05:55] LABS: BASOPHILS % (AUTO) 2 % (0-1); EOSINOPHILS # (AUTO) 0.27 x10^3/uL (0-0.4); EOSINOPHILS % (AUTO) 3 % (1-7); LYMPHOCYTES # (AUTO) 1.79 x10^3/uL (1-3.4); LYMPHOCYTES % (AUTO) 20 % (22-44); MD NO; MEAN CORPUSCULAR HEMOGLOBIN 31.4 pg (27.0-34.8); MEAN CORPUSCULAR HGB CONC 32.7 g/dL (32.4-35.8); MEAN PLATELET VOLUME 6.6 fL (7.4-10.4); MONOCYTES # (AUTO) 0.93 x10^3/uL (0.2-0.8); MONOCYTES % (AUTO) 10 % (2-9); NEUTROPHILS # (AUTO) 5.96 x10^3/uL (1.8-6.8); NEUTROPHILS % (AUTO) 65 % (42-75); PLATELET COUNT 392 x10^3/uL (130-400); RED BLOOD COUNT 1.89 x10^6/uL (3.82-5.3)
[2018-01-29 06:07] LABS: ALBUMIN 1.8 g/dL (3.4-5.0); ANION GAP 5 mmol/L (5-15); CALCIUM 7.7 mg/dL (8.5-10.1); CHLORIDE 109 mmol/L (98-107)
[2018-01-29 06:12] LABS: ALKALINE PHOSPHATASE 72 U/L (45-117); BILIRUBIN,TOTAL 0.4 mg/dL (0.2-1.0); CREATININE 1.36 mg/dL (0.55-1.02)
[2018-01-29 06:50] LABS: ALANINE AMINOTRANSFERASE < 6 U/L (12-78)
[2018-01-29] MEDS: INSULIN LISPRO 100 UNITS/ML, PEN SQ-INSULIN SCH ×4 (07:00→21:50)
[2018-01-29] MEDS: ACETAMINOPHEN 500 MG TABLET PO SCH ×2 (07:30→15:40)
[2018-01-29] MEDS ORDERED: OMNIPAQUE 350 MG/ML, 100ML BOTTLE ONE (08:15)
[2018-01-29 08:22] VITALS: BP 128/69
[2018-01-29] MEDS ORDERED: IRON SUCROSE COMPLEX 100MG/5ML IV ONE (09:00)
[2018-01-29] MEDS: DOCUSATE 100 MG CAPSULE PO SCH ×2 (09:00→21:41)
[2018-01-29] MEDS: RIVAROXABAN 10 MG TABLET PO SCH (09:00)
[2018-01-29] MEDS: SODIUM CHLORIDE FLUSH 10ML SYR IVF SCH ×2 (10:36→21:42)
[2018-01-29] MEDS: FOLIC ACID 1 MG TABLET PO SCH (10:37)
[2018-01-29] MEDS: OMEPRAZOLE 20 MG CAPSULE.DR PO SCH ×2 (10:37→21:43)
[2018-01-29] MEDS: CYANOCOBALAMIN 1,000 MCG TABLET PO SCH (10:37)
[2018-01-29] MEDS: FUROSEMIDE 20 MG TABLET PO SCH (10:38)
[2018-01-29] MEDS: GABAPENTIN 300 MG CAPSULE PO SCH (10:38)
[2018-01-29] MEDS: DAPTOMYCIN 600 MG in SODIUM CHLORIDE 0.9% 100 ML IV SCH (13:04)
[2018-01-29] MEDS ORDERED: OMEP-110 PO (13:10)
[2018-01-29] MEDS ORDERED: FOLI-17 PO (13:10)
[2018-01-29] MEDS ORDERED: RIVA10TA PO (13:10)
[2018-01-29] MEDS ORDERED: CYAN10005 PO (13:10)
[2018-01-29] MEDS ORDERED: IRON200V IV (13:44)
[2018-01-29] MEDS ORDERED: OXYC5CAP2 PO (13:45)
[2018-01-29 14:05] VITALS: BP 114/69
[2018-01-29 19:10] VITALS: BP 103/61
[2018-01-29] MEDS: SIMVASTATIN 10 MG TABLET PO SCH (21:43)
[2018-01-30] MEDS: ACETAMINOPHEN 500 MG TABLET PO SCH ×2 (00:37→08:51)
[2018-01-30] MEDS: CEFAZOLIN PMX 1GM/50ML 50 ML IVPB SCH ×2 (02:17→08:53)
[2018-01-30 05:12] VITALS: BP 105/56
[2018-01-30] MEDS: LEVOTHYROXINE 125 MCG TABLET PO SCH (05:54)
[2018-01-30 06:19] LABS: MEAN CORPUSCULAR HGB CONC 33.2 g/dL (32.4-35.8); MEAN CORPUSCULAR VOLUME 96.4 fL (80-100); MEAN PLATELET VOLUME 6.3 fL (7.4-10.4); PLATELET COUNT 419 x10^3/uL (130-400); RED BLOOD COUNT 2.03 x10^6/uL (3.82-5.3); RED CELL DISTRIBUTION WIDTH 18.3 % (9.6-15.2)
[2018-01-30 06:29] LABS: ANION GAP 7 mmol/L (5-15); CALCIUM 8.2 mg/dL (8.5-10.1); CHLORIDE 106 mmol/L (98-107); CREATININE 1.21 mg/dL (0.55-1.02)
[2018-01-30 06:53] VITALS: BP 111/66
[2018-01-30 06:55] LABS: BASOPHILS # (AUTO) 0.03 x10^3/uL (0-0.1); BASOPHILS % (AUTO) 0 % (0-1); EOSINOPHILS # (AUTO) 0.25 x10^3/uL (0-0.4); EOSINOPHILS % (AUTO) 3 % (1-7); LYMPHOCYTES # (AUTO) 2.18 x10^3/uL (1-3.4); LYMPHOCYTES % (AUTO) 22 % (22-44); MD SCAN; MONOCYTES # (AUTO) 1.08 x10^3/uL (0.2-0.8); MONOCYTES % (AUTO) 11 % (2-9); NEUTROPHILS # (AUTO) 6.54 x10^3/uL (1.8-6.8); NEUTROPHILS % (AUTO) 65 % (42-75)
[2018-01-30] MEDS: INSULIN LISPRO 100 UNITS/ML, PEN SQ-INSULIN SCH (07:00)
[2018-01-30] MEDS: GABAPENTIN 300 MG CAPSULE PO SCH (08:50)
[2018-01-30] MEDS: OMEPRAZOLE 20 MG CAPSULE.DR PO SCH (08:50)
[2018-01-30] MEDS: FUROSEMIDE 20 MG TABLET PO SCH (08:51)
[2018-01-30] MEDS: FOLIC ACID 1 MG TABLET PO SCH (08:51)
[2018-01-30] MEDS: CYANOCOBALAMIN 1,000 MCG TABLET PO SCH (08:51)
[2018-01-30] MEDS: SODIUM CHLORIDE FLUSH 10ML SYR IVF SCH (08:51)
== END 2018-01-30 09:09 | DRG 463 ==
LOC: ORIP 05:20 → 4NOR 11:16
PROVIDERS: ADMIT Orthopaedic Surgery Adult Reconstructive Orthopaedic Surgery; ATTEND Internal Medicine
PROC: 0SHD08Z Insertion of Spacer into Left Knee Joint, Open Approach (ICD-10-PCS; 2018-01-22)
PROC: 0SPD0JZ Removal of Synthetic Substitute from Left Knee Joint, Open Approach (ICD-10-PCS; principal; 2018-01-22 07:30)
PROC: 02HV33Z Insertion of Infusion Device into Superior Vena Cava, Percutaneous Approach (ICD-10-PCS; 2018-01-23)
PROC: B5181ZA Fluoroscopy of Superior Vena Cava using Low Osmolar Contrast, Guidance (ICD-10-PCS; 2018-01-23)
PROC: B548ZZA Ultrasonography of Superior Vena Cava, Guidance (ICD-10-PCS; 2018-01-23)
DX: T84.54XA Infection and inflammatory reaction due to internal left knee prosthesis, initial encounter (principal); E43 Unspecified severe protein-calorie malnutrition; M00.9 Pyogenic arthritis, unspecified; N17.9 Acute kidney failure, unspecified; D68.69 Other thrombophilia; Y83.1 Surgical operation with implant of artificial internal device as the cause of abnormal reaction of the patient, or of later complication, without mention of misadventure at the time of the procedure; Z96.652 Presence of left artificial knee joint; E03.9 Hypothyroidism, unspecified; E11.9 Type 2 diabetes mellitus without complications; I50.9 Heart failure, unspecified; E87.5 Hyperkalemia; D50.9 Iron deficiency anemia, unspecified; D63.1 Anemia in chronic kidney disease; E11.22 Type 2 diabetes mellitus with diabetic chronic kidney disease; E83.51 Hypocalcemia; I87.8 Other specified disorders of veins; M06.9 Rheumatoid arthritis, unspecified; M85.869 Other specified disorders of bone density and structure, unspecified lower leg; N18.3 Chronic kidney disease, stage 3 (moderate); Z96.641 Presence of right artificial hip joint; Z79.01 Long term (current) use of anticoagulants; Z80.1 Family history of malignant neoplasm of trachea, bronchus and lung; Z86.14 Personal history of Methicillin resistant Staphylococcus aureus infection; Z86.711 Personal history of pulmonary embolism; Z86.718 Personal history of other venous thrombosis and embolism; Z87.891 Personal history of nicotine dependence; Z90.49 Acquired absence of other specified parts of digestive tract; Z90.710 Acquired absence of both cervix and uterus; Z88.8 Allergy status to other drugs, medicaments and biological substances
CPT/HCPCS: 36415; 36569; 71275; 76937; 77001; 80048; 80053; 82040; 82550; 82553; 82962; 83036; 83540; 83550; 83735; 84100; 84443; 85018; 85025; 85610; 87015; 87070; 87075; 87102; 87116; 87176; 87205; 87206; 93970; C1713; J0171; J0690; J0878; J1100; J1170; J1756; J1815; J1885; J2405; J2704; J2795; J3010; J3260; J3370; J3490; Q0162; Q9967; C1751; C1776; J7030; J7040; J7120

== ENCOUNTER 2018-06-18 05:22 | Inpatient (IN) | payer MEDICARE, OTHER ==
[~2018-06-18] VITALS: Ht 165.1 cm; Wt 78.9 kg
[~2018-06-18 05:22] MED LIST: AMIT10TA PO; AMOX-291 PO; ASCO10004 PO; CALC1TAB41 PO; CHOL200024 PO; CYAN100028 PO; CYAN10005 PO; DOXY100C2 PO; DOXY100T PO; FERR324T8 PO; FOLI-17 PO; FURO20TA3 PO; GABA300C10 PO; INFL100V IV; IRON1TAB62 PO; IRON200V IV; LEVO125T5 PO; METF500T27 PO; METH2.5T PO; OMEP-110 PO; ONDA4TAB7 PO; OXYC5CAP2 PO; POTA10CA PO; POTA10TA31 PO; RIVA10TA PO; SIMV10TA3 PO; SPIR100T4 PO; TRAM50TA2 PO; WARF1TAB74 PO; WARF2TAB99 PO
[2018-06-18] MEDS ORDERED: MIDAZOLAM 1 MG/ML, 2ML ONE (06:25)
[2018-06-18] MEDS ORDERED: FENTANYL PF 250 MCG/5ML ONE ×2 (06:26→09:22)
[2018-06-18] MEDS ORDERED: DEXAMETHASONE 4 MG/ML, 1ML ONE (06:32)
[2018-06-18] MEDS ORDERED: NEOSTIGMINE 1 MG/ML, 10ML ONE (06:32)
[2018-06-18] MEDS ORDERED: PROPOFOL 10 MG/ML, 20ML ONE (06:32)
[2018-06-18] MEDS ORDERED: GLYCOPYRROLATE 0.2MG/1ML, 5ML ONE (06:32)
[2018-06-18] MEDS ORDERED: ONDANSETRON 2MG/ML, 2ML ONE (06:32)
[2018-06-18] MEDS ORDERED: CEFAZOLIN 1,000 MG ONE ×2 (06:32→06:50)
[2018-06-18] MEDS ORDERED: ROCURONIUM 10MG/ML,5ML ONE (06:32)
[2018-06-18] MEDS ORDERED: KETOROLAC 60 MG/2 ML ONE (06:50)
[2018-06-18] MEDS ORDERED: TRANEXAMIC ACID 100 MG/ML, 10ML ONE (06:50)
[2018-06-18] MEDS ORDERED: EPINEPHRINE 1 MG/ML, 1ML ONE (06:51)
[2018-06-18] MEDS ORDERED: SODIUM CHLORIDE 0.9% 0 ML ONE (06:51)
[2018-06-18] MEDS ORDERED: ROPIvacaine/PF 0.2%, 20 ML ONE (06:51)
[2018-06-18] MEDS ORDERED: PROMETHAZINE 12.5 MG SUPP PR PRN ×2 (07:00→11:00)
[2018-06-18] MEDS ORDERED: PROMETHAZINE 25 MG/ML, 1ML IV PRN (07:00)
[2018-06-18] MEDS ORDERED: LABETALOL 5MG/ML, 20ML IV PRN (07:00)
[2018-06-18] MEDS ORDERED: hydrALAzine 20 MG/ML, 1ML IV PRN (07:00)
[2018-06-18] MEDS ORDERED: PROMETHAZINE 25 MG SUPP PR PRN (07:00)
[2018-06-18] MEDS ORDERED: MEPERIDINE/PF 25MG/0.5ML IVPush PRN (07:00)
[2018-06-18] MEDS ORDERED: ONDANSETRON ODT 8 MG PO PRN (07:00)
[2018-06-18] MEDS ORDERED: OXYcodone 5 MG/5 ML ORAL.SOL UDC PO PRN (07:00)
[2018-06-18] MEDS ORDERED: PROMETHAZINE 25 MG/ML, 1ML IM PRN ×3 (07:00→11:00)
[2018-06-18] MEDS ORDERED: ONDANSETRON 2MG/ML, 2ML IV PRN ×2 (07:00→11:00)
[2018-06-18] MEDS ORDERED: MORPHINE SULFATE 4 MG/ML, 1ML IVPush PRN (07:00)
[2018-06-18] MEDS ORDERED: LACTATED RINGERS 1,000 ML IV SCH (07:05)
[2018-06-18] MEDS ORDERED: TOBRAMYCIN SULFATE 1.2 GM IMP ONE (07:11)
[2018-06-18] MEDS ORDERED: VANCOMYCIN 1,000 MG ONE (07:11)
[2018-06-18] MEDS ORDERED: DAPTOMYCIN 600 MG in SODIUM CHLORIDE 0.9% 100 ML IVPB ONE (07:13)
[2018-06-18] MEDS ORDERED: GABAPENTIN 300 MG CAPSULE PO ONE (07:30)
[2018-06-18] MEDS ORDERED: LIDOCAINE-MPF 1%, 2ML INFIL ONE (07:30)
[2018-06-18] MEDS ORDERED: ACETAMINOPHEN 500 MG TABLET PO ONE (07:30)
[2018-06-18] MEDS ORDERED: xarelto PO (07:32)
[2018-06-18] MEDS ORDERED: FENTANYL PF 100 MCG/2ML ONE (10:44)
[2018-06-18] MEDS ORDERED: OXYcodone 5 MG/5 ML ORAL.SOL UDC ONE (10:45)
[2018-06-18] MEDS: FENTANYL PF 100 MCG/2ML IV PRN ×2 (10:49→10:56)
[2018-06-18] MEDS ORDERED: BISACODYL 10 MG SUPP PR PRN (11:00)
[2018-06-18] MEDS ORDERED: SENNA/DOCUSATE TABLET PO PRN (11:00)
[2018-06-18] MEDS ORDERED: ALUMINUM/MAG/SIMETHICONE 30 ML UDC PO PRN (11:00)
[2018-06-18] MEDS: DAPTOMYCIN 450 MG in SODIUM CHLORIDE 0.9% 100 ML IVPB SCH (11:00)
[2018-06-18] MEDS ORDERED: MAGNESIUM HYDROXIDE 8%, 30ML UDC PO PRN (11:00)
[2018-06-18] MEDS ORDERED: LORazepam 1MG TABLET PO PRN (11:00)
[2018-06-18] MEDS ORDERED: HYDROcodone/APAP 5/325 TABLET PO PRN (11:00)
[2018-06-18] MEDS: INSULIN REGULAR 100 UNITS/ML, 3ML VIAL SQ-INSULIN SCH ×3 (11:00→20:26)
[2018-06-18] MEDS ORDERED: DIPHENHYDRAMINE 25 MG CAPSULE PO PRN (11:00)
[2018-06-18] MEDS ORDERED: ONDANSETRON 4 MG TABLET PO PRN (11:00)
[2018-06-18] MEDS ORDERED: HYDROmorphone 1 MG/ML, 1ML IV PRN (11:00)
[2018-06-18] MEDS ORDERED: DIAZEPAM 5 MG TABLET PO PRN (11:00)
[2018-06-18] MEDS ORDERED: HYDROmorphone 2 MG/ML, 1ML ONE (11:01)
[2018-06-18] MEDS: HYDROmorphone 1 MG/ML, 1ML IV PRN ×4 (11:04→11:32)
[2018-06-18 12:31] VITALS: BP 105/57
[2018-06-18 12:56] LABS: CREATININE 1.71 mg/dL (0.55-1.02)
[2018-06-18] MEDS: SODIUM CHLORIDE 0.9% 1,000 ML IV SCH ×2 (13:26→23:53)
[2018-06-18] MEDS: OXYcodone IR 5MG TABLET PO PRN ×2 (15:46→21:32)
[2018-06-18] MEDS: CEFAZOLIN PMX 2GM/50ML 50 ML IVPB SCH ×2 (16:16→23:53)
[2018-06-18 18:54] VITALS: BP 109/70
[2018-06-18] MEDS: SIMVASTATIN 10 MG TABLET PO SCH (21:18)
[2018-06-18] MEDS: DOCUSATE 100 MG CAPSULE PO SCH (21:18)
[2018-06-19] MEDS: ACETAMINOPHEN 650 MG/20.3 ML UDC PO PRN (00:02)
[2018-06-19 00:16] VITALS: BP_SYST 101; BP_SYST 93; BP_DIAS 61; BP_DIAS 64
[2018-06-19] MEDS: OXYcodone IR 5MG TABLET PO PRN ×2 (01:45→08:54)
[2018-06-19 05:20] VITALS: BP 100/66
[2018-06-19 05:20] LABS: ALBUMIN 2.3 g/dL (3.4-5.0); ANION GAP 7 mmol/L (5-15); CALCIUM 8.6 mg/dL (8.5-10.1); CHLORIDE 106 mmol/L (98-107)
[2018-06-19 05:21] LABS: CREATININE 1.66 mg/dL (0.55-1.02)
[2018-06-19] MEDS: INSULIN REGULAR 100 UNITS/ML, 3ML VIAL SQ-INSULIN SCH ×4 (07:00→22:19)
[2018-06-19 07:15] VITALS: BP 104/62
[2018-06-19] MEDS ORDERED: SPIRONOLACTONE 25 MG TABLET ONE (08:37)
[2018-06-19] MEDS: RIVAROXABAN 10 MG TABLET PO SCH (08:40)
[2018-06-19] MEDS: SODIUM CHLORIDE 0.9% 1,000 ML IV SCH ×2 (08:40→19:55)
[2018-06-19] MEDS: GABAPENTIN 300 MG CAPSULE PO SCH (08:40)
[2018-06-19] MEDS: CEFAZOLIN PMX 2GM/50ML 50 ML IVPB SCH ×2 (08:40→16:29)
[2018-06-19] MEDS: MULTIVITAMINS/MINERALS TABLET PO SCH (08:41)
[2018-06-19] MEDS: LEVOTHYROXINE 125 MCG TABLET PO SCH (08:41)
[2018-06-19] MEDS: SPIRONOLACTONE 100 MG TABLET PO SCH (08:44)
[2018-06-19] MEDS: DOCUSATE 100 MG CAPSULE PO SCH ×2 (08:50→21:00)
[2018-06-19] MEDS ORDERED: TEMPLATE NON-FORMULARY MED. (Metformin Hcl** (Metformin Hcl Er**) 500 MG) PO SCH (09:00)
[2018-06-19] MEDS ORDERED: XARELTO PO SCH (09:00)
[2018-06-19] MEDS: DAPTOMYCIN 450 MG in SODIUM CHLORIDE 0.9% 100 ML IVPB SCH (11:50)
[2018-06-19 12:36] VITALS: BP 94/58
[2018-06-19 19:30] VITALS: BP 94/55
[2018-06-19] MEDS: SIMVASTATIN 10 MG TABLET PO SCH (21:00)
[2018-06-20] MEDS ORDERED: CEFAZOLIN PMX 2GM/50ML 50 ML IVPB ONE
[2018-06-20 02:57] VITALS: BP 95/59
[2018-06-20] MEDS: ACETAMINOPHEN 650 MG/20.3 ML UDC PO PRN (03:08)
[2018-06-20] MEDS ORDERED: OXYC5TAB3 PO (05:59)
[2018-06-20] MEDS ORDERED: SENN1TAB8 PO (05:59)
[2018-06-20 06:41] LABS: ANION GAP 9 mmol/L (5-15); CALCIUM 8.7 mg/dL (8.5-10.1); CHLORIDE 107 mmol/L (98-107); CREATININE 1.85 mg/dL (0.55-1.02)
[2018-06-20] MEDS: OXYcodone IR 5MG TABLET PO PRN ×2 (06:44→13:46)
[2018-06-20 07:25] VITALS: BP 90/55
[2018-06-20] MEDS: INSULIN REGULAR 100 UNITS/ML, 3ML VIAL SQ-INSULIN SCH ×4 (07:42→19:54)
[2018-06-20] MEDS: ERTAPENEM 1 GM in SODIUM CHLORIDE 0.9% 50 ML IV SCH (08:12)
[2018-06-20] MEDS: GABAPENTIN 300 MG CAPSULE PO SCH (08:13)
[2018-06-20] MEDS: LEVOTHYROXINE 125 MCG TABLET PO SCH (08:13)
[2018-06-20] MEDS: RIVAROXABAN 10 MG TABLET PO SCH (08:13)
[2018-06-20] MEDS: SPIRONOLACTONE 100 MG TABLET PO SCH (08:13)
[2018-06-20] MEDS: MULTIVITAMINS/MINERALS TABLET PO SCH (08:13)
[2018-06-20] MEDS: DOCUSATE 100 MG CAPSULE PO SCH ×2 (08:13→19:54)
[2018-06-20] MEDS: TAMSULOSIN 0.4 MG CAP.ER.24H PO SCH (10:49)
[2018-06-20] MEDS: DAPTOMYCIN 450 MG in SODIUM CHLORIDE 0.9% 100 ML IVPB SCH (12:11)
[2018-06-20] MEDS: SODIUM CHLORIDE 0.9% 1,000 ML IV SCH (12:26)
[2018-06-20 15:06] VITALS: BP 86/48
[2018-06-20] MEDS: SIMVASTATIN 10 MG TABLET PO SCH (19:54)
[2018-06-20 21:20] VITALS: BP 99/61
[2018-06-21] MEDS: SODIUM CHLORIDE 0.9% 1,000 ML IV SCH ×2 (05:14→17:30)
[2018-06-21 05:16] VITALS: BP 98/62
[2018-06-21] MEDS: OXYcodone IR 5MG TABLET PO PRN (06:17)
[2018-06-21] MEDS: INSULIN REGULAR 100 UNITS/ML, 3ML VIAL SQ-INSULIN SCH ×4 (06:36→21:00)
[2018-06-21 08:17] VITALS: BP 94/57
[2018-06-21] MEDS ORDERED: SPIRONOLACTONE 25 MG TABLET ONE (08:30)
[2018-06-21] MEDS: DOCUSATE 100 MG CAPSULE PO SCH ×2 (08:34→21:27)
[2018-06-21] MEDS: MULTIVITAMINS/MINERALS TABLET PO SCH (08:34)
[2018-06-21] MEDS: GABAPENTIN 300 MG CAPSULE PO SCH (08:34)
[2018-06-21] MEDS: RIVAROXABAN 10 MG TABLET PO SCH (08:34)
[2018-06-21] MEDS: LEVOTHYROXINE 125 MCG TABLET PO SCH (08:34)
[2018-06-21] MEDS: ERTAPENEM 1 GM in SODIUM CHLORIDE 0.9% 50 ML IV SCH (08:34)
[2018-06-21] MEDS: TAMSULOSIN 0.4 MG CAP.ER.24H PO SCH (08:35)
[2018-06-21] MEDS: SPIRONOLACTONE 100 MG TABLET PO SCH (08:35)
[2018-06-21] MEDS ORDERED: TAMSULOSIN 0.4 MG CAP.ER.24H PO SCH (09:00)
[2018-06-21] MEDS: DAPTOMYCIN 450 MG in SODIUM CHLORIDE 0.9% 100 ML IVPB SCH (11:04)
[2018-06-21 12:56] VITALS: BP 97/58
[2018-06-21 19:46] VITALS: BP 95/58
[2018-06-21] MEDS: SIMVASTATIN 10 MG TABLET PO SCH (21:27)
[2018-06-22 03:55] VITALS: BP 94/57
[2018-06-22] MEDS: INSULIN REGULAR 100 UNITS/ML, 3ML VIAL SQ-INSULIN SCH ×2 (06:28→12:01)
[2018-06-22 08:30] VITALS: BP 101/66
[2018-06-22] MEDS: DOCUSATE 100 MG CAPSULE PO SCH (09:31)
[2018-06-22] MEDS: LEVOTHYROXINE 125 MCG TABLET PO SCH (09:31)
[2018-06-22] MEDS: MULTIVITAMINS/MINERALS TABLET PO SCH (09:31)
[2018-06-22] MEDS: TAMSULOSIN 0.4 MG CAP.ER.24H PO SCH (09:31)
[2018-06-22] MEDS: SPIRONOLACTONE 100 MG TABLET PO SCH (09:31)
[2018-06-22] MEDS: RIVAROXABAN 10 MG TABLET PO SCH (09:31)
[2018-06-22] MEDS: GABAPENTIN 300 MG CAPSULE PO SCH (09:31)
[2018-06-22] MEDS: SODIUM CHLORIDE 0.9% 1,000 ML IV SCH (09:32)
[2018-06-22] MEDS: ERTAPENEM 1 GM in SODIUM CHLORIDE 0.9% 50 ML IV SCH (09:37)
[2018-06-22] MEDS: DAPTOMYCIN 450 MG in SODIUM CHLORIDE 0.9% 100 ML IVPB SCH (12:00)
== END 2018-06-22 13:30 | disposition home or self-care (01) | DRG 466 ==
LOC: ORIP 05:22 → 4NOR 12:17
PROVIDERS: ADMIT Orthopaedic Surgery Adult Reconstructive Orthopaedic Surgery; ATTEND Orthopaedic Surgery Adult Reconstructive Orthopaedic Surgery
PROC: 0SPD08Z Removal of Spacer from Left Knee Joint, Open Approach (ICD-10-PCS; 2018-06-18)
PROC: 0SRD0J9 Replacement of Left Knee Joint with Synthetic Substitute, Cemented, Open Approach (ICD-10-PCS; principal; 2018-06-18 07:30)
PROC: 02HV33Z Insertion of Infusion Device into Superior Vena Cava, Percutaneous Approach (ICD-10-PCS; 2018-06-21)
PROC: B548ZZA Ultrasonography of Superior Vena Cava, Guidance (ICD-10-PCS; 2018-06-21)
DX: Z47.33 Aftercare following explantation of knee joint prosthesis (principal); E43 Unspecified severe protein-calorie malnutrition; E11.9 Type 2 diabetes mellitus without complications; M17.10 Unilateral primary osteoarthritis, unspecified knee; Z96.652 Presence of left artificial knee joint; Z53.1 Procedure and treatment not carried out because of patient's decision for reasons of belief and group pressure; Z86.14 Personal history of Methicillin resistant Staphylococcus aureus infection; Z88.1 Allergy status to other antibiotic agents; Z68.28 Body mass index [BMI] 28.0-28.9, adult; Z88.5 Allergy status to narcotic agent; Y92.89 Other specified places as the place of occurrence of the external cause; Z79.4 Long term (current) use of insulin
CPT/HCPCS: 36415; 36569; 76937; 77001; 80048; 82040; 82565; 82962; 85014; 85018; C1713; G0378; J0171; J0690; J0878; J1100; J1170; J1335; J1815; J1885; J2250; J2405; J2704; J2710; J2795; J3010; J3260; J3370; J3490; C1751; C1762; C1776; J7030

== ENCOUNTER 2018-06-30 14:14 | Inpatient (IN) | payer MEDICARE, OTHER ==
[~2018-06-30] VITALS: Ht 167.6 cm; Wt 82.3 kg
[~2018-06-30 14:14] MED LIST changes: +OXYC5TAB3 PO; +SENN1TAB8 PO; +xarelto PO
[2018-06-30] MEDS ORDERED: SODIUM CHLORIDE FLUSH 10ML SYR IVF ONE (14:30)
[2018-06-30] MEDS ORDERED: ONDANSETRON 2MG/ML, 2ML IVPush ONE (14:30)
[2018-06-30] MEDS ORDERED: HYDROmorphone 2 MG/ML, 1ML IVPush PRN (14:30)
[2018-06-30] MEDS ORDERED: ACETAMINOPHEN 325 MG TABLET PO ONE (14:30)
[2018-06-30 14:52] LABS: INTERNATIONAL NORMALIZED RATIO 1.63 (0.93-1.1); MEAN CORPUSCULAR HEMOGLOBIN 31.8 pg (27.0-34.8); MEAN CORPUSCULAR HGB CONC 32.9 g/dL (32.4-35.8); MEAN CORPUSCULAR VOLUME 96.7 fL (80-100); MEAN PLATELET VOLUME 6.8 fL (7.4-10.4); PLATELET COUNT 437 x10^3/uL (130-400)
[2018-06-30 14:54] LABS: ALANINE AMINOTRANSFERASE 12 U/L (12-78); ALBUMIN 2.2 g/dL (3.4-5.0); ANION GAP 9 mmol/L (5-15); CALCIUM 8.8 mg/dL (8.5-10.1); CHLORIDE 103 mmol/L (98-107)
[2018-06-30] MEDS ORDERED: ONDANSETRON 2MG/ML, 2ML ONE (14:59)
[2018-06-30] MEDS ORDERED: ACETAMINOPHEN 325 MG TABLET ONE (15:00)
[2018-06-30] MEDS ORDERED: HYDROmorphone 2 MG/ML, 1ML ONE (15:00)
[2018-06-30 15:01] LABS: ALKALINE PHOSPHATASE 70 U/L (45-117); BILIRUBIN,TOTAL 0.9 mg/dL (0.2-1.0)
[2018-06-30 15:09] LABS: MD YES
[2018-06-30 15:11] LABS: LYMPH#(MANUAL) 0.93 x10^3/uL (1-3.4); LYMPHS% (MANUAL) 7 % (22-44)
[2018-06-30 15:12] LABS: MONOS% (MANUAL) 3 % (2-9); SEG#(MANUAL) 11.97 x10^3/uL (1.8-6.8); SEGS% (MANUAL) 90 % (42-75)
[2018-06-30 15:17] LABS: ANISOCYTOSIS 1+; MICROCYTOSIS 1+
[2018-06-30 15:18] LABS: <PLATELET ESTIMATE> INCREASED; <PLT MORPHOLOGY> NORMAL PLT MORPH; OVALOCYTES 1+
[2018-06-30 15:21] LABS: HCT (SEDRATE) 22.3 % (34.6-47.8)
[2018-06-30] MEDS ORDERED: FURO20TA3 PO (16:26)
[2018-06-30] MEDS ORDERED: RIVA10TA PO (16:26)
[2018-06-30] MEDS: INSULIN LISPRO 100 UNITS/ML, PEN SQ-INSULIN SCH ×2 (17:30→21:53)
[2018-06-30] MEDS ORDERED: hydrALAzine 20 MG/ML, 1ML IVPush PRN (17:30)
[2018-06-30] MEDS ORDERED: GLUCAGON 1 MG IM PRN (17:30)
[2018-06-30] MEDS ORDERED: DEXTROSE 50%, 50ML SYRINGE IVPush PRN (17:30)
[2018-06-30] MEDS ORDERED: DEXTROSE 4 GM TAB.CHEW PO PRN (17:30)
[2018-06-30] MEDS ORDERED: ONDANSETRON 2MG/ML, 2ML IVPush PRN (17:30)
[2018-06-30] MEDS ORDERED: PHARMACY INSTRUCTION MC PRN (17:30)
[2018-06-30 18:05] VITALS: BP 96/56
[2018-06-30 18:36] VITALS: BP 96/56
[2018-06-30] MEDS: OXYcodone IR 5MG TABLET PO PRN (19:30)
[2018-06-30 20:11] VITALS: BP 98/60
[2018-06-30] MEDS: PIPERACILLIN/TAZO/PMX 3.375GM 50 ML IV SCH (20:44)
[2018-06-30] MEDS: GABAPENTIN 300 MG CAPSULE PO SCH (20:44)
[2018-06-30] MEDS: SIMVASTATIN 10 MG TABLET PO SCH (20:44)
[2018-06-30] MEDS: SODIUM CHLORIDE FLUSH 10ML SYR IVF SCH (20:45)
[2018-06-30] MEDS ORDERED: FERROUS GLUCONATE 27 MG PO SCH (21:00)
[2018-06-30] MEDS ORDERED: TEMPLATE NON-FORMULARY MED. (Metformin Hcl** (Metformin Hcl Er**) 500 MG) PO SCH (21:00)
[2018-06-30] MEDS: INSULIN GLARGINE 100 UNITS/ML, PEN SQ-INSULIN SCH (21:53)
[2018-06-30] MEDS: DAPTOMYCIN 440 MG in SODIUM CHLORIDE 0.9% 100 ML IVPB SCH (21:53)
[2018-06-30 22:18] LABS: MICROSCOPIC NOT IND
[2018-06-30 22:27] LABS: CULTURE INDICATED? NO
[2018-07-01] MEDS: OXYcodone IR 5MG TABLET PO PRN ×4 (00:08→14:57)
[2018-07-01 01:33] VITALS: BP 100/55
[2018-07-01 04:25] LABS: ANION GAP 9 mmol/L (5-15); CALCIUM 8.5 mg/dL (8.5-10.1); CHLORIDE 104 mmol/L (98-107); CREATININE 1.85 mg/dL (0.55-1.02)
[2018-07-01] MEDS: PIPERACILLIN/TAZO/PMX 3.375GM 50 ML IV SCH ×3 (04:34→23:19)
[2018-07-01 05:01] LABS: MEAN CORPUSCULAR HEMOGLOBIN 33.1 pg (27.0-34.8); MEAN CORPUSCULAR HGB CONC 33.9 g/dL (32.4-35.8); MEAN CORPUSCULAR VOLUME 97.7 fL (80-100); MEAN PLATELET VOLUME 6.5 fL (7.4-10.4); PLATELET COUNT 427 x10^3/uL (130-400); RED CELL DISTRIBUTION WIDTH 16.8 % (9.6-15.2)
[2018-07-01 05:52] LABS: BASOPHILS # (AUTO) 0.04 x10^3/uL (0-0.1); BASOPHILS % (AUTO) 0 % (0-1); EOSINOPHILS # (AUTO) 0.38 x10^3/uL (0-0.4); EOSINOPHILS % (AUTO) 4 % (1-7); LYMPHOCYTES # (AUTO) 0.89 x10^3/uL (1-3.4); LYMPHOCYTES % (AUTO) 9 % (22-44); MD SCAN; MONOCYTES # (AUTO) 0.33 x10^3/uL (0.2-0.8); MONOCYTES % (AUTO) 3 % (2-9); NEUTROPHILS # (AUTO) 8.47 x10^3/uL (1.8-6.8); NEUTROPHILS % (AUTO) 84 % (42-75)
[2018-07-01 06:43] VITALS: BP 91/49
[2018-07-01] MEDS: INSULIN LISPRO 100 UNITS/ML, PEN SQ-INSULIN SCH ×4 (08:08→19:51)
[2018-07-01] MEDS: GABAPENTIN 300 MG CAPSULE PO SCH ×3 (08:58→19:50)
[2018-07-01] MEDS: FOLIC ACID 1 MG TABLET PO SCH (08:59)
[2018-07-01] MEDS ORDERED: CALCIUM CARBONATE 500 MG TABLET PO SCH (09:00)
[2018-07-01] MEDS: CHOLECALCIFEROL 1,000 UNIT TABLET PO SCH (09:00)
[2018-07-01] MEDS: CYANOCOBALAMIN 1,000 MCG TABLET PO SCH (09:00)
[2018-07-01] MEDS: SODIUM CHLORIDE FLUSH 10ML SYR IVF SCH ×2 (09:00→19:50)
[2018-07-01] MEDS: POTASSIUM CHLORIDE 10 MEQ TABLET.ER PO SCH (09:00)
[2018-07-01] MEDS: ASCORBIC ACID 500 MG TABLET PO SCH (09:00)
[2018-07-01] MEDS: LEVOTHYROXINE 125 MCG TABLET PO SCH (09:00)
[2018-07-01 12:05] VITALS: BP 114/76
[2018-07-01 13:23] VITALS: BP 95/55
[2018-07-01 19:43] VITALS: BP 116/63
[2018-07-01] MEDS: SIMVASTATIN 10 MG TABLET PO SCH (19:50)
[2018-07-01] MEDS: INSULIN GLARGINE 100 UNITS/ML, PEN SQ-INSULIN SCH (19:51)
[2018-07-01] MEDS ORDERED: ACETAMINOPHEN 120 MG SUPP PR PRN (20:30)
[2018-07-01] MEDS: SODIUM CHLORIDE 0.9% 1,000 ML IV SCH (20:34)
[2018-07-01 20:45] LABS: MD YES; MEAN CORPUSCULAR HEMOGLOBIN 32.2 pg (27.0-34.8); MEAN CORPUSCULAR HGB CONC 33.1 g/dL (32.4-35.8); MEAN CORPUSCULAR VOLUME 97.4 fL (80-100); MEAN PLATELET VOLUME 6.7 fL (7.4-10.4); PLATELET COUNT 465 x10^3/uL (130-400); RED BLOOD COUNT 2.08 x10^6/uL (3.82-5.3); RED CELL DISTRIBUTION WIDTH 17.4 % (9.6-15.2)
[2018-07-01 20:54] LABS: ALANINE AMINOTRANSFERASE 12 U/L (12-78); ALBUMIN 1.9 g/dL (3.4-5.0); ANION GAP 9 mmol/L (5-15); CALCIUM 8.3 mg/dL (8.5-10.1); CHLORIDE 104 mmol/L (98-107); CREATININE 1.91 mg/dL (0.55-1.02)
[2018-07-01 20:58] LABS: ALKALINE PHOSPHATASE 66 U/L (45-117); BILIRUBIN,TOTAL 0.4 mg/dL (0.2-1.0); TOTAL PROTEIN 5.8 g/dL (6.4-8.2)
[2018-07-01] MEDS ORDERED: ACETAMINOPHEN 650 MG SUPP ONE (21:04)
[2018-07-01 21:07] LABS: EOS#(MANUAL) 0.47 x10^3/uL (0.0-0.4); EOS% (MANUAL) 5 % (1-7); LYMPH#(MANUAL) 0.93 x10^3/uL (1-3.4); LYMPHS% (MANUAL) 10 % (22-44); MONOS#(MANUAL) 0.19 x10^3/uL (0.3-2.7); MONOS% (MANUAL) 2 % (2-9); SEG#(MANUAL) 7.72 x10^3/uL (1.8-6.8); SEGS% (MANUAL) 83 % (42-75)
[2018-07-01 21:08] LABS: ANISOCYTOSIS 1+; MICROCYTOSIS 1+; POLYCHROMASIA 1+
[2018-07-01 21:09] LABS: <PLATELET ESTIMATE> INCREASED; <PLT MORPHOLOGY> NORMAL PLT MORPH
[2018-07-01] MEDS: ACETAMINOPHEN 325 MG TABLET PO PRN (21:16)
[2018-07-02] MEDS: DAPTOMYCIN 440 MG in SODIUM CHLORIDE 0.9% 100 ML IVPB SCH (00:18)
[2018-07-02 00:26] VITALS: BP 97/55
[2018-07-02 00:30] VITALS: BP 101/60
[2018-07-02] MEDS: OXYcodone IR 5MG TABLET PO PRN ×2 (00:39→20:58)
[2018-07-02] MEDS ORDERED: ACETAMINOPHEN 650 MG SUPP PR PRN (02:30)
[2018-07-02] MEDS: ACETAMINOPHEN 325 MG TABLET PO PRN ×2 (03:34→12:39)
[2018-07-02 04:40] LABS: MEAN CORPUSCULAR HEMOGLOBIN 32.2 pg (27.0-34.8); MEAN CORPUSCULAR HGB CONC 32.7 g/dL (32.4-35.8); MEAN CORPUSCULAR VOLUME 98.5 fL (80-100); MEAN PLATELET VOLUME 6.7 fL (7.4-10.4); PLATELET COUNT 426 x10^3/uL (130-400); RED BLOOD COUNT 2.22 x10^6/uL (3.82-5.3); RED CELL DISTRIBUTION WIDTH 17.3 % (9.6-15.2)
[2018-07-02 04:43] LABS: ANION GAP 7 mmol/L (5-15); CALCIUM 8.3 mg/dL (8.5-10.1); CHLORIDE 107 mmol/L (98-107)
[2018-07-02] MEDS: LEVOTHYROXINE 125 MCG TABLET PO SCH (05:02)
[2018-07-02 05:20] LABS: MD YES
[2018-07-02 05:22] LABS: ANISOCYTOSIS 1+; EOS% (MANUAL) 1 % (1-7); LYMPH#(MANUAL) 0.76 x10^3/uL (1-3.4); LYMPHS% (MANUAL) 8 % (22-44); MICROCYTOSIS 1+; MONOS#(MANUAL) 0.19 x10^3/uL (0.3-2.7); MONOS% (MANUAL) 2 % (2-9); SEG#(MANUAL) 8.46 x10^3/uL (1.8-6.8); SEGS% (MANUAL) 89 % (42-75)
[2018-07-02 05:23] LABS: <PLATELET ESTIMATE> INCREASED; <PLT MORPHOLOGY> NORMAL PLT MORPH; POLYCHROMASIA 1+
[2018-07-02] MEDS: PIPERACILLIN/TAZO/PMX 3.375GM 50 ML IV SCH ×3 (06:30→22:28)
[2018-07-02 06:54] VITALS: BP 95/58
[2018-07-02] MEDS: INSULIN LISPRO 100 UNITS/ML, PEN SQ-INSULIN SCH ×4 (07:00→20:41)
[2018-07-02] MEDS: SODIUM CHLORIDE FLUSH 10ML SYR IVF SCH ×2 (09:00→20:36)
[2018-07-02] MEDS: CALCIUM CARBONATE 500 MG TABLET PO SCH (09:47)
[2018-07-02] MEDS: ASCORBIC ACID 500 MG TABLET PO SCH (09:47)
[2018-07-02] MEDS: FOLIC ACID 1 MG TABLET PO SCH (09:47)
[2018-07-02] MEDS: POTASSIUM CHLORIDE 10 MEQ TABLET.ER PO SCH (09:48)
[2018-07-02] MEDS: GABAPENTIN 300 MG CAPSULE PO SCH ×3 (09:48→20:36)
[2018-07-02] MEDS: CHOLECALCIFEROL 1,000 UNIT TABLET PO SCH (09:48)
[2018-07-02] MEDS: CYANOCOBALAMIN 1,000 MCG TABLET PO SCH (09:48)
[2018-07-02 10:20] VITALS: BP 87/46
[2018-07-02] MEDS: SODIUM CHLORIDE 0.9% 1,000 ML IV SCH ×2 (12:00→17:31)
[2018-07-02 13:44] VITALS: BP 95/55
[2018-07-02 19:14] VITALS: BP 95/57
[2018-07-02] MEDS: SIMVASTATIN 10 MG TABLET PO SCH (20:37)
[2018-07-02] MEDS: INSULIN GLARGINE 100 UNITS/ML, PEN SQ-INSULIN SCH (20:42)
[2018-07-03] MEDS: SODIUM CHLORIDE 0.9% 1,000 ML IV SCH ×2 (02:29→20:22)
[2018-07-03] MEDS: DAPTOMYCIN 440 MG in SODIUM CHLORIDE 0.9% 100 ML IVPB SCH (02:29)
[2018-07-03 02:38] VITALS: BP 101/57
[2018-07-03] MEDS ORDERED: LEVOTHYROXINE 100 MCG TABLET ONE (05:22)
[2018-07-03] MEDS ORDERED: LEVOTHYROXINE 25 MCG TABLET ONE (05:22)
[2018-07-03] MEDS: LEVOTHYROXINE 125 MCG TABLET PO SCH (05:31)
[2018-07-03] MEDS: PIPERACILLIN/TAZO/PMX 3.375GM 50 ML IV SCH ×3 (05:32→23:14)
[2018-07-03] MEDS: ACETAMINOPHEN 325 MG TABLET PO PRN ×2 (05:39→10:00)
[2018-07-03 06:41] VITALS: BP 92/57
[2018-07-03] MEDS: INSULIN LISPRO 100 UNITS/ML, PEN SQ-INSULIN SCH ×4 (07:00→20:25)
[2018-07-03] MEDS: SODIUM CHLORIDE FLUSH 10ML SYR IVF SCH ×2 (09:00→20:27)
[2018-07-03] MEDS: CHOLECALCIFEROL 1,000 UNIT TABLET PO SCH (10:00)
[2018-07-03] MEDS: ASCORBIC ACID 500 MG TABLET PO SCH (10:00)
[2018-07-03] MEDS: CALCIUM CARBONATE 500 MG TABLET PO SCH (10:00)
[2018-07-03] MEDS: GABAPENTIN 300 MG CAPSULE PO SCH ×3 (10:00→20:22)
[2018-07-03] MEDS: POTASSIUM CHLORIDE 10 MEQ TABLET.ER PO SCH (10:00)
[2018-07-03] MEDS: CYANOCOBALAMIN 1,000 MCG TABLET PO SCH (10:01)
[2018-07-03] MEDS: FOLIC ACID 1 MG TABLET PO SCH (10:01)
[2018-07-03] MEDS ORDERED: DOXY100T PO (14:18)
[2018-07-03] MEDS ORDERED: AMOX-291 PO (14:18)
[2018-07-03 19:09] VITALS: BP 105/53
[2018-07-03] MEDS: SIMVASTATIN 10 MG TABLET PO SCH (20:22)
[2018-07-03] MEDS: INSULIN GLARGINE 100 UNITS/ML, PEN SQ-INSULIN SCH (20:27)
[2018-07-04] MEDS: DAPTOMYCIN 440 MG in SODIUM CHLORIDE 0.9% 100 ML IVPB SCH (00:32)
[2018-07-04 01:40] VITALS: BP 111/66
[2018-07-04] MEDS ORDERED: LEVOTHYROXINE 100 MCG TABLET ONE (05:49)
[2018-07-04] MEDS: LEVOTHYROXINE 125 MCG TABLET PO SCH (06:07)
[2018-07-04] MEDS: PIPERACILLIN/TAZO/PMX 3.375GM 50 ML IV SCH (06:07)
[2018-07-04 06:36] VITALS: BP 96/60
[2018-07-04] MEDS: INSULIN LISPRO 100 UNITS/ML, PEN SQ-INSULIN SCH (07:00)
[2018-07-04] MEDS: SODIUM CHLORIDE 0.9% 1,000 ML IV SCH (08:00)
[2018-07-04] MEDS: POTASSIUM CHLORIDE 10 MEQ TABLET.ER PO SCH (08:19)
[2018-07-04] MEDS: ASCORBIC ACID 500 MG TABLET PO SCH (08:20)
[2018-07-04] MEDS: GABAPENTIN 300 MG CAPSULE PO SCH (08:20)
[2018-07-04] MEDS: FOLIC ACID 1 MG TABLET PO SCH (08:20)
[2018-07-04] MEDS: CALCIUM CARBONATE 500 MG TABLET PO SCH (08:20)
[2018-07-04] MEDS: CHOLECALCIFEROL 1,000 UNIT TABLET PO SCH (08:20)
[2018-07-04] MEDS: CYANOCOBALAMIN 1,000 MCG TABLET PO SCH (08:20)
[2018-07-04] MEDS: SODIUM CHLORIDE FLUSH 10ML SYR IVF SCH (08:21)
== END 2018-07-04 11:17 | disposition home health service (06) | DRG 871 ==
LOC: ED 15:21 → EDIP 16:26 → 3NE 17:56 → 5SO 07-01 22:40
PROVIDERS: ADMIT Internal Medicine; ATTEND Family Medicine
PROC: 0T9B70Z Drainage of Bladder with Drainage Device, Via Natural or Artificial Opening (ICD-10-PCS; principal; 2018-06-30)
PROC: 02PYX3Z Removal of Infusion Device from Great Vessel, External Approach (ICD-10-PCS; 2018-07-03)
DX: A41.9 Sepsis, unspecified organism (principal); J96.01 Acute respiratory failure with hypoxia; N17.9 Acute kidney failure, unspecified; D68.69 Other thrombophilia; I13.0 Hypertensive heart and chronic kidney disease with heart failure and stage 1 through stage 4 chronic kidney disease, or unspecified chronic kidney disease; M06.9 Rheumatoid arthritis, unspecified; Z87.891 Personal history of nicotine dependence; Z86.711 Personal history of pulmonary embolism; Z79.01 Long term (current) use of anticoagulants; E03.9 Hypothyroidism, unspecified; E11.22 Type 2 diabetes mellitus with diabetic chronic kidney disease; I50.9 Heart failure, unspecified; Z88.8 Allergy status to other drugs, medicaments and biological substances; D64.9 Anemia, unspecified; N18.3 Chronic kidney disease, stage 3 (moderate); Z80.1 Family history of malignant neoplasm of trachea, bronchus and lung; Z86.14 Personal history of Methicillin resistant Staphylococcus aureus infection; Z88.1 Allergy status to other antibiotic agents; Z90.49 Acquired absence of other specified parts of digestive tract; Z90.710 Acquired absence of both cervix and uterus; Z96.653 Presence of artificial knee joint, bilateral; M25.512 Pain in left shoulder; M25.511 Pain in right shoulder; M25.532 Pain in left wrist; M25.531 Pain in right wrist
CPT/HCPCS: 36415; 70450; 71045; 80048; 80053; 81003; 82962; 83605; 83735; 83880; 84145; 85025; 85610; 85651; 85730; 86140; 86850; 86900; 86923; 87040; 87070; 96374; 96375; 99285; G0378; J0878; J1170; J2405; J2543; J1815; J7030

== ENCOUNTER 2020-11-07 00:31 | Inpatient (IN) | payer MEDICARE, OTHER ==
[~2020-11-07] VITALS: Ht 167.6 cm; Wt 83.0 kg
[~2020-11-07 00:31] MED LIST changes: +ASCO100018 PO; -ASCO10004 PO; +CYAN-27 PO; -CYAN10005 PO; -DOXY100C2 PO; +DOXY100C5 PO; -FOLI-17 PO; +FOLI1TAB32 PO; -OXYC5TAB3 PO; +OXYC5TAB98 PO; -RIVA10TA PO; +RIVA10TA2 PO; +SENN-177 PO; -SENN1TAB8 PO; +SIMV10TA18 PO; -SIMV10TA3 PO
--- NOTE | 2020-11-07 00:56 | NUR ---
PT ARRIVES VIA MEDIC FROM [facility] FOR COMPLAINT OF SEPSIS, MULTIPLE SUSPECTED SOURCES. PT WITH WOUND TO L FA, RECENT DX OF LYMPHOMA, AND R LOBE PNA. PT REOPRTS FEELING WEAK X 2 DAYS PRIOR TO SEEKING TREATMENT, DENIES FEVER DENIES VOMITING DENIES ISSUES WITH BOWEL OR BLADDER. PT ARRIVES ALERT AND ORIENTED X4, DENIES PAIN OR DISCOMFORT AT THIS TIME. RESPIRATIONS EVEN AND UNLABORED, IV AT R WRIST. EKG DONE ON ARRIVAL THEN MD IN ROOM TO ASSESS. 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 PT DENIES NEED AT THIS TIME.
[2020-11-07] MEDS ORDERED: TRAM50TA2 PO (01:04)
[2020-11-07] MEDS ORDERED: RIVA20TA PO (01:04)
[2020-11-07] MEDS ORDERED: LOSA25TA12 PO (01:04)
[2020-11-07] MEDS ORDERED: BISACODYL 10 MG SUPP PR PRN (02:00)
[2020-11-07] MEDS ORDERED: PROMETHAZINE 25 MG/ML, 1ML IM PRN (02:00)
[2020-11-07] MEDS ORDERED: POLYETHYLENE GLYCOL 17 GM PACKET PO PRN (02:00)
[2020-11-07] MEDS ORDERED: DOCUSATE 100 MG CAPSULE PO PRN (02:00)
[2020-11-07] MEDS ORDERED: ONDANSETRON ODT 4 MG PO PRN (02:00)
[2020-11-07] MEDS ORDERED: hydrALAzine 20 MG/ML, 1ML IVPush PRN (02:00)
[2020-11-07] MEDS ORDERED: ONDANSETRON 2MG/ML, 2ML IVPush PRN (02:00)
[2020-11-07 02:16] VITALS: BP 114/46
[2020-11-07] MEDS: SODIUM CHLORIDE 0.9% 1,000 ML IV SCH ×2 (02:50→12:00)
[2020-11-07] MEDS: MEROPENEM 500 MG in SODIUM CHLORIDE 0.9% 100 ML IV SCH ×3 (02:50→19:22)
[2020-11-07] MEDS: DAPTOMYCIN 480 MG in SODIUM CHLORIDE 0.9% 100 ML IVPB SCH (03:47)
[2020-11-07 06:33] VITALS: BP 121/53
[2020-11-07 07:10] LABS: HCT (SEDRATE) 30.5 % (34.6-47.8)
[2020-11-07 07:11] LABS: BASOPHILS % (AUTO) 2 % (0-1); EOSINOPHILS % (AUTO) 3 % (1-7); LYMPHOCYTES % (AUTO) 4 % (22-44); MEAN CORPUSCULAR HEMOGLOBIN 34.7 pg (27.0-34.8); MEAN CORPUSCULAR HGB CONC 32.6 g/dL (32.4-35.8); MEAN PLATELET VOLUME 8.3 fL (7.4-10.4); MONOCYTES % (AUTO) 5 % (2-9); NEUTROPHILS % (AUTO) 86 % (42-75); PLATELET COUNT 163 x10^3/uL (130-400); RED BLOOD COUNT 2.91 x10^6/uL (3.82-5.3); RED CELL DISTRIBUTION WIDTH 19.4 % (9.6-15.2)
[2020-11-07 07:15] LABS: ALANINE AMINOTRANSFERASE 20 U/L (12-78); ALBUMIN 2.4 g/dL (3.4-5.0); ANION GAP 10 mmol/L (5-15); CALCIUM 13.1 mg/dL (8.5-10.1); CHLORIDE 106 mmol/L (98-107); CREATININE 1.28 mg/dL (0.55-1.02)
[2020-11-07 07:18] LABS: ALKALINE PHOSPHATASE 58 U/L (45-117); BILIRUBIN,TOTAL 0.7 mg/dL (0.2-1.0); CHOL/HDL RATIO 4.4; CHOLESTEROL, TOTAL 96 mg/dL (140-239); HDL CHOL % 23 % (28-40); HDL CHOLESTEROL (DIRECT) 22 mg/dL (40-60); LDL CHOLESTEROL,CALCULATED 49 mg/dL (54-169); LDL/HDL RATIO 2.2 (0.5-3.0); TOTAL PROTEIN 4.7 g/dL (6.4-8.2); TRIGLYCERIDES 127 mg/dL (50-200); VLDL CHOLESTEROL 25 mg/dL (0-25)
[2020-11-07] MEDS: MAGNESIUM HYDROXIDE 8%, 30ML UDC PO SCH ×2 (11:26→21:00)
[2020-11-07 13:59] VITALS: BP 128/60
[2020-11-07] MEDS: GABAPENTIN 300 MG CAPSULE PO SCH ×2 (16:00→21:00)
[2020-11-07] MEDS: ROPINIROLE 1MG TABLET PO SCH ×2 (17:23→21:00)
[2020-11-07 18:14] VITALS: BP 114/55
[2020-11-07] MEDS: SIMVASTATIN 10 MG TABLET PO SCH (21:00)
[2020-11-08 00:20] VITALS: BP 127/65
[2020-11-08] MEDS: ACETAMINOPHEN 325 MG TABLET PO PRN (00:50)
[2020-11-08] MEDS: OXYcodone IR 5MG TABLET PO PRN ×2 (02:50→10:42)
[2020-11-08] MEDS: MEROPENEM 500 MG in SODIUM CHLORIDE 0.9% 100 ML IV SCH ×3 (03:17→19:34)
[2020-11-08] MEDS: DAPTOMYCIN 480 MG in SODIUM CHLORIDE 0.9% 100 ML IVPB SCH (03:54)
[2020-11-08] MEDS: LEVOTHYROXINE 125 MCG TABLET PO SCH (06:12)
[2020-11-08] MEDS: RIVAROXABAN 10 MG TABLET PO SCH (06:12)
[2020-11-08 06:23] VITALS: BP 116/61
[2020-11-08 06:50] LABS: BASOPHILS % (AUTO) 1 % (0-1); EOSINOPHILS % (AUTO) 0 % (1-7); LYMPHOCYTES % (AUTO) 2 % (22-44); MEAN CORPUSCULAR HEMOGLOBIN 34.6 pg (27.0-34.8); MEAN CORPUSCULAR HGB CONC 32.6 g/dL (32.4-35.8); MEAN PLATELET VOLUME 8.2 fL (7.4-10.4); MONOCYTES % (AUTO) 2 % (2-9); NEUTROPHILS % (AUTO) 95 % (42-75); PLATELET COUNT 184 x10^3/uL (130-400); RED BLOOD COUNT 2.97 x10^6/uL (3.82-5.3); RED CELL DISTRIBUTION WIDTH 19.6 % (9.6-15.2)
[2020-11-08 06:52] LABS: ANION GAP 11 mmol/L (5-15); CALCIUM 11.9 mg/dL (8.5-10.1); CHLORIDE 103 mmol/L (98-107); CREATININE 1.21 mg/dL (0.55-1.02)
[2020-11-08] MEDS: LOSARTAN 25MG TABLET PO SCH (08:46)
[2020-11-08] MEDS: FOLIC ACID 1 MG TABLET PO SCH (08:46)
[2020-11-08] MEDS: MAGNESIUM HYDROXIDE 8%, 30ML UDC PO SCH ×2 (08:46→19:33)
[2020-11-08] MEDS: SPIRONOLACTONE 100 MG TABLET PO SCH (08:46)
[2020-11-08] MEDS: GABAPENTIN 300 MG CAPSULE PO SCH ×3 (08:46→20:45)
[2020-11-08] MEDS: ROPINIROLE 1MG TABLET PO SCH ×3 (08:46→20:45)
[2020-11-08 14:50] VITALS: BP 107/52
[2020-11-08 18:50] VITALS: BP 113/43
[2020-11-08] MEDS: SIMVASTATIN 10 MG TABLET PO SCH (20:45)
[2020-11-09 03:01] VITALS: BP 129/63
[2020-11-09] MEDS: MEROPENEM 500 MG in SODIUM CHLORIDE 0.9% 100 ML IV SCH ×2 (03:33→05:49)
[2020-11-09 05:09] LABS: BASOPHILS % (AUTO) 2 % (0-1); EOSINOPHILS % (AUTO) 1 % (1-7); LYMPHOCYTES % (AUTO) 3 % (22-44); MEAN CORPUSCULAR HEMOGLOBIN 34.6 pg (27.0-34.8); MEAN CORPUSCULAR HGB CONC 32.7 g/dL (32.4-35.8); MEAN PLATELET VOLUME 8.2 fL (7.4-10.4); MONOCYTES % (AUTO) 2 % (2-9); NEUTROPHILS % (AUTO) 93 % (42-75); PLATELET COUNT 181 x10^3/uL (130-400); RED BLOOD COUNT 2.95 x10^6/uL (3.82-5.3); RED CELL DISTRIBUTION WIDTH 19.9 % (9.6-15.2)
[2020-11-09 05:18] LABS: ANION GAP 10 mmol/L (5-15); CALCIUM 11.7 mg/dL (8.5-10.1); CHLORIDE 108 mmol/L (98-107); CREATININE 1.13 mg/dL (0.55-1.02)
[2020-11-09] MEDS: LEVOTHYROXINE 125 MCG TABLET PO SCH (05:50)
[2020-11-09] MEDS: RIVAROXABAN 10 MG TABLET PO SCH (05:50)
[2020-11-09] MEDS: DAPTOMYCIN 480 MG in SODIUM CHLORIDE 0.9% 100 ML IVPB SCH (06:25)
[2020-11-09 07:03] VITALS: BP 116/67
[2020-11-09] MEDS: MAGNESIUM HYDROXIDE 8%, 30ML UDC PO SCH ×2 (09:00→20:44)
[2020-11-09] MEDS: ROPINIROLE 1MG TABLET PO SCH ×3 (09:59→20:52)
[2020-11-09] MEDS: GABAPENTIN 300 MG CAPSULE PO SCH ×3 (09:59→20:52)
[2020-11-09] MEDS: FOLIC ACID 1 MG TABLET PO SCH (09:59)
[2020-11-09] MEDS: SPIRONOLACTONE 100 MG TABLET PO SCH (09:59)
[2020-11-09] MEDS: LOSARTAN 25MG TABLET PO SCH (09:59)
[2020-11-09] MEDS: DOXYCYCLINE 100MG TABLET PO SCH ×2 (10:00→20:52)
[2020-11-09 12:00] VITALS: BP 135/75
[2020-11-09] MEDS ORDERED: SODIUM CHLORIDE 0.9%, 500ML IVBOLUS ONE (17:00)
[2020-11-09 19:35] VITALS: BP 128/67
[2020-11-09] MEDS: SIMVASTATIN 10 MG TABLET PO SCH (20:52)
[2020-11-10 01:20] VITALS: BP 137/76
[2020-11-10] MEDS: LEVOTHYROXINE 125 MCG TABLET PO SCH (05:38)
[2020-11-10] MEDS: RIVAROXABAN 10 MG TABLET PO SCH (05:38)
[2020-11-10 05:39] LABS: BASOPHILS % (AUTO) 3 % (0-1); EOSINOPHILS % (AUTO) 2 % (1-7); LYMPHOCYTES % (AUTO) 4 % (22-44); MEAN CORPUSCULAR HEMOGLOBIN 35.1 pg (27.0-34.8); MEAN CORPUSCULAR HGB CONC 33.5 g/dL (32.4-35.8); MEAN PLATELET VOLUME 7.6 fL (7.4-10.4); MONOCYTES % (AUTO) 3 % (2-9); NEUTROPHILS % (AUTO) 88 % (42-75); PLATELET COUNT 200 x10^3/uL (130-400); RED BLOOD COUNT 2.87 x10^6/uL (3.82-5.3); RED CELL DISTRIBUTION WIDTH 19.1 % (9.6-15.2)
[2020-11-10 05:44] LABS: ANION GAP 10 mmol/L (5-15); CALCIUM 11.1 mg/dL (8.5-10.1); CHLORIDE 108 mmol/L (98-107); CREATININE 0.95 mg/dL (0.55-1.02)
[2020-11-10 06:32] VITALS: BP 125/68
[2020-11-10] MEDS: DOXYCYCLINE 100MG TABLET PO SCH ×2 (08:41→20:18)
[2020-11-10] MEDS: ROPINIROLE 1MG TABLET PO SCH ×3 (08:42→20:19)
[2020-11-10] MEDS: GABAPENTIN 300 MG CAPSULE PO SCH ×3 (08:42→20:18)
[2020-11-10] MEDS: FOLIC ACID 1 MG TABLET PO SCH (08:42)
[2020-11-10] MEDS: SPIRONOLACTONE 100 MG TABLET PO SCH (08:42)
[2020-11-10] MEDS: MAGNESIUM HYDROXIDE 8%, 30ML UDC PO SCH ×2 (08:43→20:19)
[2020-11-10] MEDS: LOSARTAN 25MG TABLET PO SCH (08:43)
[2020-11-10] MEDS ORDERED: ROPI1TAB4 PO (10:20)
[2020-11-10] MEDS ORDERED: DOXY100T PO (10:20)
[2020-11-10 10:57] VITALS: BP 122/62
[2020-11-10 12:09] VITALS: BP 120/62
[2020-11-10 18:43] VITALS: BP 112/58
[2020-11-10] MEDS: SIMVASTATIN 10 MG TABLET PO SCH (20:18)
[2020-11-11 00:10] VITALS: BP 112/58
[2020-11-11 05:51] LABS: ANION GAP 7 mmol/L (5-15); CALCIUM 10.7 mg/dL (8.5-10.1); CHLORIDE 108 mmol/L (98-107)
[2020-11-11] MEDS: RIVAROXABAN 10 MG TABLET PO SCH (05:51)
[2020-11-11] MEDS: LEVOTHYROXINE 125 MCG TABLET PO SCH (05:51)
[2020-11-11 05:54] LABS: CREATININE 0.88 mg/dL (0.55-1.02)
[2020-11-11 06:27] VITALS: BP 116/64
[2020-11-11] MEDS: ROPINIROLE 1MG TABLET PO SCH ×3 (09:20→21:18)
[2020-11-11] MEDS: ALLOPURINOL 300 MG TABLET PO SCH ×2 (09:20→21:18)
[2020-11-11] MEDS: GABAPENTIN 300 MG CAPSULE PO SCH ×3 (09:20→21:18)
[2020-11-11] MEDS: LOSARTAN 25MG TABLET PO SCH (09:20)
[2020-11-11] MEDS: SPIRONOLACTONE 100 MG TABLET PO SCH (09:20)
[2020-11-11] MEDS: FOLIC ACID 1 MG TABLET PO SCH (09:20)
[2020-11-11] MEDS: MAGNESIUM HYDROXIDE 8%, 30ML UDC PO SCH ×2 (09:20→21:18)
[2020-11-11] MEDS: DOXYCYCLINE 100MG TABLET PO SCH ×2 (09:20→21:24)
[2020-11-11] MEDS ORDERED: OMNIPAQUE 350 MG/ML, 100ML BOTTLE ONE (10:47)
[2020-11-11 12:41] VITALS: BP 113/64
[2020-11-11 16:00] VITALS: BP 112/54
[2020-11-11 18:44] VITALS: BP 117/56
[2020-11-11] MEDS: SIMVASTATIN 10 MG TABLET PO SCH (21:18)
[2020-11-12] VITALS: BP 114/56
[2020-11-12] MEDS: ACETAMINOPHEN 325 MG TABLET PO PRN (01:04)
[2020-11-12] MEDS: OXYcodone IR 5MG TABLET PO PRN (02:13)
[2020-11-12 04:40] LABS: BASOPHILS % (AUTO) 3 % (0-1); EOSINOPHILS % (AUTO) 5 % (1-7); LYMPHOCYTES % (AUTO) 5 % (22-44); MEAN CORPUSCULAR HEMOGLOBIN 34.7 pg (27.0-34.8); MEAN CORPUSCULAR HGB CONC 33.5 g/dL (32.4-35.8); MEAN PLATELET VOLUME 7.6 fL (7.4-10.4); MONOCYTES % (AUTO) 7 % (2-9); NEUTROPHILS % (AUTO) 81 % (42-75); PLATELET COUNT 129 x10^3/uL (130-400); RED BLOOD COUNT 2.63 x10^6/uL (3.82-5.3); RED CELL DISTRIBUTION WIDTH 19.4 % (9.6-15.2)
[2020-11-12 04:44] LABS: ALBUMIN 2.3 g/dL (3.4-5.0); ANION GAP 6 mmol/L (5-15); CALCIUM 10.2 mg/dL (8.5-10.1); CHLORIDE 108 mmol/L (98-107)
[2020-11-12 04:49] LABS: ALANINE AMINOTRANSFERASE 20 U/L (12-78); ALKALINE PHOSPHATASE 53 U/L (45-117); BILIRUBIN,TOTAL 0.8 mg/dL (0.2-1.0); CREATININE 0.91 mg/dL (0.55-1.02); TOTAL PROTEIN 4.4 g/dL (6.4-8.2)
[2020-11-12] MEDS ORDERED: GLUCAGON 1 MG IM PRN (05:30)
[2020-11-12] MEDS ORDERED: DEXTROSE 4 GM TAB.CHEW PO PRN (05:30)
[2020-11-12] MEDS ORDERED: DEXTROSE 50%, 50ML SYRINGE IVPush PRN (05:30)
[2020-11-12] MEDS: RIVAROXABAN 10 MG TABLET PO SCH (05:54)
[2020-11-12] MEDS: LEVOTHYROXINE 125 MCG TABLET PO SCH (05:55)
[2020-11-12 08:24] VITALS: BP 116/53
[2020-11-12] MEDS: ROPINIROLE 1MG TABLET PO SCH ×3 (08:28→20:42)
[2020-11-12] MEDS: SODIUM CHLORIDE FLUSH 10ML SYR IVF SCH ×2 (08:28→20:42)
[2020-11-12] MEDS: GABAPENTIN 300 MG CAPSULE PO SCH ×3 (08:28→20:43)
[2020-11-12] MEDS: SPIRONOLACTONE 100 MG TABLET PO SCH (08:28)
[2020-11-12] MEDS: MAGNESIUM HYDROXIDE 8%, 30ML UDC PO SCH ×2 (08:28→20:42)
[2020-11-12] MEDS: FOLIC ACID 1 MG TABLET PO SCH (08:28)
[2020-11-12] MEDS: DOXYCYCLINE 100MG TABLET PO SCH ×2 (08:28→20:43)
[2020-11-12] MEDS: ALLOPURINOL 300 MG TABLET PO SCH ×2 (08:28→20:43)
[2020-11-12] MEDS: LOSARTAN 25MG TABLET PO SCH (08:28)
[2020-11-12 12:13] VITALS: BP 107/52
[2020-11-12] MEDS ORDERED: LORA-446 PO (15:33)
[2020-11-12] MEDS ORDERED: OXYC5TAB98 PO (15:33)
[2020-11-12 18:31] VITALS: BP 114/54
[2020-11-12] MEDS: SIMVASTATIN 10 MG TABLET PO SCH (20:43)
[2020-11-13 00:29] VITALS: BP 107/50
[2020-11-13] MEDS: RIVAROXABAN 10 MG TABLET PO SCH (05:29)
[2020-11-13] MEDS: LEVOTHYROXINE 125 MCG TABLET PO SCH (05:29)
[2020-11-13 06:28] VITALS: BP 90/41
[2020-11-13 06:38] VITALS: BP 110/45
[2020-11-13] MEDS: SODIUM CHLORIDE FLUSH 10ML SYR IVF SCH (07:26)
[2020-11-13] MEDS: ALLOPURINOL 300 MG TABLET PO SCH (08:30)
[2020-11-13] MEDS: ROPINIROLE 1MG TABLET PO SCH (08:30)
[2020-11-13] MEDS: DOXYCYCLINE 100MG TABLET PO SCH (08:30)
[2020-11-13] MEDS: GABAPENTIN 300 MG CAPSULE PO SCH (08:30)
[2020-11-13] MEDS: FOLIC ACID 1 MG TABLET PO SCH (08:30)
[2020-11-13] MEDS: SPIRONOLACTONE 100 MG TABLET PO SCH ×2 (08:30→08:37)
[2020-11-13] MEDS: LOSARTAN 25MG TABLET PO SCH ×2 (08:30→08:37)
[2020-11-13] MEDS: MAGNESIUM HYDROXIDE 8%, 30ML UDC PO SCH (08:31)
[2020-11-13] MEDS: OXYcodone IR 5MG TABLET PO PRN (11:42)
[2020-11-13 12:02] VITALS: BP 105/62
== END 2020-11-13 14:15 | disposition hospice, home (50) | DRG 682 ==
LOC: ED 01:13 → EDIP 01:38 → 4NW 02:02
PROVIDERS: ADMIT Internal Medicine; ATTEND Family Medicine
DX: N17.0 Acute kidney failure with tubular necrosis (principal); G93.41 Metabolic encephalopathy; L03.114 Cellulitis of left upper limb; D68.59 Other primary thrombophilia; D84.9 Immunodeficiency, unspecified; E87.2 Acidosis; C83.30 Diffuse large B-cell lymphoma, unspecified site; I13.0 Hypertensive heart and chronic kidney disease with heart failure and stage 1 through stage 4 chronic kidney disease, or unspecified chronic kidney disease; T80.818A Extravasation of other vesicant agent, initial encounter; Z20.822 Contact with and (suspected) exposure to COVID-19; D64.9 Anemia, unspecified; E03.9 Hypothyroidism, unspecified; Z53.1 Procedure and treatment not carried out because of patient's decision for reasons of belief and group pressure; Z66 Do not resuscitate; Z96.641 Presence of right artificial hip joint; Z96.652 Presence of left artificial knee joint; R26.81 Unsteadiness on feet; E11.22 Type 2 diabetes mellitus with diabetic chronic kidney disease; E83.52 Hypercalcemia; E86.0 Dehydration; I25.10 Atherosclerotic heart disease of native coronary artery without angina pectoris; I50.9 Heart failure, unspecified; M06.9 Rheumatoid arthritis, unspecified; M19.90 Unspecified osteoarthritis, unspecified site; N18.30 Chronic kidney disease, stage 3 unspecified; N28.1 Cyst of kidney, acquired; R32 Unspecified urinary incontinence; Y92.009 Unspecified place in unspecified non-institutional (private) residence as the place of occurrence of the external cause; Z79.01 Long term (current) use of anticoagulants; Z79.899 Other long term (current) drug therapy; Z80.1 Family history of malignant neoplasm of trachea, bronchus and lung; Z85.828 Personal history of other malignant neoplasm of skin; Z86.14 Personal history of Methicillin resistant Staphylococcus aureus infection; Z86.711 Personal history of pulmonary embolism; Z86.718 Personal history of other venous thrombosis and embolism; Z87.891 Personal history of nicotine dependence; Z88.1 Allergy status to other antibiotic agents; Z90.710 Acquired absence of both cervix and uterus; Z90.49 Acquired absence of other specified parts of digestive tract; Z95.5 Presence of coronary angioplasty implant and graft; Z88.5 Allergy status to narcotic agent
CPT/HCPCS: 36415; 71260; 74177; 80048; 80053; 80061; 82962; 83036; 83615; 83735; 84100; 84550; 85025; 85651; 86140; 86705; 86706; 86803; 87040; 87070; 87205; 87340; 93005; 99285; G0378; J0878; J2185; Q9967; J1610; J7030; J7040; U0003